=== PATIENT | male | born 1985 ===

== ENCOUNTER 2019-06-28 13:53 | Inpatient (IN) ==
[2019-06-28 16:22] LABS: Apearance,Urine CLOUDY (Clear); Bilirubin,Urine Negative (Negative); Blood, Urine Moderate mg/dL (Negative); Glucose,Urine (UA) 50 mg/dL (Negative); Hyaline Casts,Urine 187 /LPF (0-3); Ketones,Urine 5 mg/dL (Negative); Mucus,Urine Many /LPF (Occasional); Nitrite,Urine Negative (Negative); Protein,Urine 100 MG/DL; RBC,Urine 23 /HPF (0-4); Squamous Epithelial Cell,Urine Occasional /HPF (0-10); Urine Color Amber (Yellow); Urine Specific Gravity 1.018 (1.001-1.035); Urine Urobilinogen < 2.0 EU/DL (0.2-1.0); WBC,Urine 45 /HPF (0-6)
[2019-06-28] MEDS ORDERED: INFLUENZA VIRUS VACCINE 0.5 ML SYRINGE IM ONE (16:50)
[2019-06-28] MEDS ORDERED: DEXTROSE 10% 250 ML BAG IV PRN (16:57)
[2019-06-28] MEDS ORDERED: ALBUTEROL 2.5 MG/3 ML NEB RESP TX PRN (16:57)
[2019-06-28] MEDS ORDERED: ACETAMINOPHEN 325 MG TABLET PO PRN (16:57)
[2019-06-28] MEDS ORDERED: GLUCAGON 1 MG VIAL IM PRN (16:57)
[2019-06-28] MEDS ORDERED: ONDANSETRON 4 MG/2 ML VIAL IV PRN (16:57)
[2019-06-28 17:01] LABS: Basophils % 0.2 % (0.0-0.8); Eosinophils # 0.1 10*3/uL (0.0-0.87); Eosinophils % 0.9 % (0.00-10.9); Hematocrit 29.1 VOL% (42.0-52.0); Hemoglobin 9.3 GM/DL (14.0-18.0); Immature Granulocytes % 0.4 %; Immature Granulocytes Absolute 0.04 #; Lymphocytes # 2.1 10*3/uL (1.4-4.0); Lymphocytes % 22.8 % (21.2-54.2); Mean Corpuscular Volume 95.1 FL (87-102); Mean Platelet Volume 10.7 FL (9.6-12.0); Monocytes % 8.1 % (1.7-12.7); Neutrophils % 67.6 % (38.7-73.9); Red Blood Count 3.06 MC/CUMM (3.8-5.5); Red Cell Distribution Width 15.2 % (9.3-17.3)
[2019-06-28 17:03] LABS: Platelet Count 83 T/CUMM (130-400)
[2019-06-28] MEDS: SODIUM CHLORIDE 0.9% 1,000 ML IV SCH ×2 (17:08→19:15)
[2019-06-28 17:21] LABS: Calcium 7.2 MG/DL (8.5-10.1); Osmolality,Calculated 287.7 MOS/KG (273-304)
[2019-06-28 17:28] LABS: Platelet Estimate Decreased
[2019-06-28 17:53] LABS: Pt O2 Delivery Device Room Air
[2019-06-28 17:54] LABS: ABG HCO3 9.1 MMOL/L (20-26); ABG Oxygen Saturation 98.6 % (95-100); ABG PCO2 22.7 MM HG (35-48)
[2019-06-28 17:56] LABS: ABG PH 7.115 (7.35-7.45)
[2019-06-28] MEDS: LINEZOLID INJ 600 MG in PREMIX 1 EACH IV SCH (18:02)
[2019-06-28 18:15] LABS: Risk Ratio 3.94
[2019-06-28] MEDS: SODIUM BICARB INJ 50 MEQ in SODIUM CHLORIDE 0.45% 1,000 ML IV SCH (19:15)
[2019-06-28] MEDS ORDERED: LEVOFLOXACIN INJ 750 MG in PREMIX 1 EACH IV SCH (20:00)
[2019-06-28] MEDS: INSULIN LISPRO 100 UNIT/ML SUBCUT SCH (20:25)
[2019-06-28] MEDS ORDERED: ENOXAPARIN 30 MG/0.3 ML SYRINGE SUBCUT SCH (21:00)
[2019-06-29 05:10] LABS: Basophils % 0.3 % (0.0-0.8); Eosinophils # 0.1 10*3/uL (0.0-0.87); Eosinophils % 1.6 % (0.00-10.9); Hematocrit 25.3 VOL% (42.0-52.0); Hemoglobin 8.1 GM/DL (14.0-18.0); Immature Granulocytes % 0.4 %; Immature Granulocytes Absolute 0.03 #; Lymphocytes # 1.5 10*3/uL (1.4-4.0); Lymphocytes % 21.5 % (21.2-54.2); Mean Corpuscular Volume 94.4 FL (87-102); Mean Platelet Volume 10.7 FL (9.6-12.0); Neutrophils % 66.2 % (38.7-73.9); Red Blood Count 2.68 MC/CUMM (3.8-5.5); Red Cell Distribution Width 15.2 % (9.3-17.3); White Blood Count 6.9 T/CUMM (4-12)
[2019-06-29 05:17] LABS: Platelet Count 66 T/CUMM (130-400)
[2019-06-29 05:31] LABS: Hypochromasia 1+; Ovalocytes Slight; Platelet Estimate Decreased
[2019-06-29] MEDS: SODIUM BICARB INJ 50 MEQ in SODIUM CHLORIDE 0.45% 1,000 ML IV SCH ×3 (05:37→17:59)
[2019-06-29 05:39] LABS: Albumin 2.3 G/DL (3.4-5.0); Bilirubin,Total 1.2 MG/DL (0.2-1.0); Calcium 6.5 MG/DL (8.5-10.1); Osmolality,Calculated 289.8 MOS/KG (273-304); Total Protein 6.1 G/DL (6.4-8.3)
[2019-06-29] MEDS: LINEZOLID INJ 600 MG in PREMIX 1 EACH IV SCH ×2 (06:13→18:58)
[2019-06-29] MEDS: INSULIN LISPRO 100 UNIT/ML SUBCUT SCH ×4 (08:33→21:15)
[2019-06-29] MEDS: SODIUM HYPOCHLORITE 0.25% IRRIG 473 ML BOTTLE TOP SCH (09:45)
[2019-06-29] MEDS: SODIUM CHLORIDE 23.4% CONC INJ 38.5 MEQ, SODIUM BICARB INJ 100 MEQ in STERILE WATER INJ... IV SCH (21:11)
[2019-06-29] MEDS: OMEGA 3 ACID ETHYL ESTERS 1 GM CAPSULE PO SCH (21:15)
[2019-06-29] MEDS: FERROUS SULFATE 325 MG TABLET PO SCH (21:15)
[2019-06-29] MEDS: GABAPENTIN 300 MG CAPSULE PO SCH (21:15)
[2019-06-30 05:13] LABS: Eosinophils # 0.1 10*3/uL (0.0-0.87); Eosinophils % 1.7 % (0.00-10.9); Hematocrit 24.3 VOL% (42.0-52.0); Hemoglobin 7.9 GM/DL (14.0-18.0); Immature Granulocytes % 0.6 %; Immature Granulocytes Absolute 0.03 #; Lymphocytes # 1.6 10*3/uL (1.4-4.0); Lymphocytes % 29.9 % (21.2-54.2); Mean Corpuscular HGB Conc 32.5 GM/DL (32-36); Mean Corpuscular Volume 93.5 FL (87-102); Mean Platelet Volume 10.9 FL (9.6-12.0); Monocytes % 11.8 % (1.7-12.7); Platelet Count 74 T/CUMM (130-400); Red Cell Distribution Width 15.1 % (9.3-17.3); White Blood Count 5.3 T/CUMM (4-12)
[2019-06-30 05:40] LABS: Calcium 6.5 MG/DL (8.5-10.1); Osmolality,Calculated 294.4 MOS/KG (273-304)
[2019-06-30 05:44] LABS: Hypochromasia Slight; Microcytosis 1+; Platelet Estimate Decreased
[2019-06-30] MEDS: LINEZOLID INJ 600 MG in PREMIX 1 EACH IV SCH ×2 (05:47→17:11)
[2019-06-30] MEDS: INSULIN LISPRO 100 UNIT/ML SUBCUT SCH ×4 (08:11→21:17)
[2019-06-30] MEDS: FERROUS SULFATE 325 MG TABLET PO SCH ×2 (08:12→20:54)
[2019-06-30] MEDS: CHOLECALCIFEROL 5,000 UNIT TABLET PO SCH (08:12)
[2019-06-30] MEDS: ASPIRIN EC 81 MG TABLET PO SCH (08:12)
[2019-06-30] MEDS: SODIUM HYPOCHLORITE 0.25% IRRIG 473 ML BOTTLE TOP SCH (08:13)
[2019-06-30] MEDS: SODIUM CHLORIDE 23.4% CONC INJ 38.5 MEQ, SODIUM BICARB INJ 100 MEQ in STERILE WATER INJ... IV SCH ×2 (09:29→20:53)
[2019-06-30] MEDS ORDERED: LEVOFLOXACIN INJ 500 MG in PREMIX 1 EACH IV SCH (20:00)
[2019-06-30] MEDS: OMEGA 3 ACID ETHYL ESTERS 1 GM CAPSULE PO SCH (20:54)
[2019-06-30] MEDS: GABAPENTIN 300 MG CAPSULE PO SCH (20:54)
[2019-07-01] MEDS: LINEZOLID INJ 600 MG in PREMIX 1 EACH IV SCH ×2 (05:08→17:12)
[2019-07-01 05:18] LABS: Calcium 6.5 MG/DL (8.5-10.1); Osmolality,Calculated 304.8 MOS/KG (273-304)
[2019-07-01] MEDS: SODIUM HYPOCHLORITE 0.25% IRRIG 473 ML BOTTLE TOP SCH (08:04)
[2019-07-01] MEDS: ASPIRIN EC 81 MG TABLET PO SCH (08:04)
[2019-07-01] MEDS: CHOLECALCIFEROL 5,000 UNIT TABLET PO SCH (08:04)
[2019-07-01] MEDS: FERROUS SULFATE 325 MG TABLET PO SCH ×2 (08:04→20:59)
[2019-07-01] MEDS: INSULIN LISPRO 100 UNIT/ML SUBCUT SCH ×4 (08:07→21:00)
[2019-07-01] MEDS: SODIUM BICARB INJ 100 MEQ in STERILE WATER INJ 1,000 ML IV SCH ×2 (09:33→23:56)
[2019-07-01] MEDS: OMEGA 3 ACID ETHYL ESTERS 1 GM CAPSULE PO SCH (20:59)
[2019-07-01] MEDS: GABAPENTIN 300 MG CAPSULE PO SCH (21:00)
[2019-07-01] MEDS ORDERED: CIPROFLOXACIN 500 MG TABLET PO SCH (21:00)
[2019-07-02] MEDS: SODIUM CHLORIDE 23.4% CONC INJ 38.5 MEQ, SODIUM BICARB INJ 100 MEQ in STERILE WATER INJ... IV SCH (01:19)
[2019-07-02 05:08] LABS: Basophils % 0.3 % (0.0-0.8); Eosinophils # 0.1 10*3/uL (0.0-0.87); Eosinophils % 2.4 % (0.00-10.9); Hematocrit 21.1 VOL% (42.0-52.0); Hemoglobin 7.1 GM/DL (14.0-18.0); Immature Granulocytes % 0.3 %; Immature Granulocytes Absolute 0.01 #; Lymphocytes # 1.2 10*3/uL (1.4-4.0); Lymphocytes % 40.2 % (21.2-54.2); Mean Corpuscular HGB Conc 33.6 GM/DL (32-36); Mean Corpuscular Volume 92.1 FL (87-102); Mean Platelet Volume 10.4 FL (9.6-12.0); Monocytes % 10.1 % (1.7-12.7); Neutrophils % 46.7 % (38.7-73.9); Platelet Count 81 T/CUMM (130-400); Red Blood Count 2.29 MC/CUMM (3.8-5.5); Red Cell Distribution Width 15.3 % (9.3-17.3)
[2019-07-02 05:37] LABS: Calcium 6.4 MG/DL (8.5-10.1); Osmolality,Calculated 304.4 MOS/KG (273-304)
[2019-07-02 05:39] LABS: Eosinophils 3 % (0-10); Lymphocytes 44 % (20-55); Segmented Neutrophils 43 % (50-85); Total Cells Counted 100
[2019-07-02 05:41] LABS: Anisocytosis 1+; Platelet Estimate Decreased
[2019-07-02] MEDS: FERROUS SULFATE 325 MG TABLET PO SCH ×2 (08:29→20:48)
[2019-07-02] MEDS: SULFAMETHOX/TRIMETHOPRIM 800-160 MG TABLET PO SCH (08:29)
[2019-07-02] MEDS: ASPIRIN EC 81 MG TABLET PO SCH (08:30)
[2019-07-02] MEDS: CHOLECALCIFEROL 5,000 UNIT TABLET PO SCH (08:30)
[2019-07-02] MEDS: SODIUM HYPOCHLORITE 0.25% IRRIG 473 ML BOTTLE TOP SCH (08:30)
[2019-07-02] MEDS: INSULIN LISPRO 100 UNIT/ML SUBCUT SCH ×4 (09:03→20:49)
[2019-07-02] MEDS ORDERED: MAGNESIUM SULF RIDER 2 GM in PREMIX 1 EACH IV ONE (09:06)
[2019-07-02] MEDS: SODIUM BICARB INJ 50 MEQ in STERILE WATER INJ 1,000 ML IV SCH (14:58)
[2019-07-02] MEDS: GABAPENTIN 300 MG CAPSULE PO SCH (20:48)
[2019-07-02] MEDS: OMEGA 3 ACID ETHYL ESTERS 1 GM CAPSULE PO SCH (20:49)
[2019-07-03 05:05] LABS: Calcium 6.7 MG/DL (8.5-10.1); Osmolality,Calculated 299.6 MOS/KG (273-304)
[2019-07-03] MEDS: SODIUM BICARB INJ 50 MEQ in STERILE WATER INJ 1,000 ML IV SCH (07:30)
[2019-07-03] MEDS: INSULIN LISPRO 100 UNIT/ML SUBCUT SCH ×2 (07:40→13:46)
[2019-07-03] MEDS: ASPIRIN EC 81 MG TABLET PO SCH (08:32)
[2019-07-03] MEDS: CHOLECALCIFEROL 5,000 UNIT TABLET PO SCH (08:33)
[2019-07-03] MEDS: FERROUS SULFATE 325 MG TABLET PO SCH (08:33)
[2019-07-03] MEDS: SULFAMETHOX/TRIMETHOPRIM 800-160 MG TABLET PO SCH (08:33)
[2019-07-03] MEDS: SODIUM HYPOCHLORITE 0.25% IRRIG 473 ML BOTTLE TOP SCH (09:55)
[2019-07-03 13:58] VITALS: BP 164/89
[2019-07-03] MEDS ORDERED: SODIUM BICARBONATE 650 MG TABLET PO SCH (21:00)
== END 2019-07-03 15:15 | disposition home or self-care (01) | DRG 683 ==
LOC: N.ICU 15:38 → SUATTDRO 15:38 → N.3E 06-29 15:32
PROVIDERS: ADMIT Internal Medicine; ATTEND Internal Medicine

== ENCOUNTER 2021-11-04 10:25 | Observation (INO) ==
[~2021-11-04 10:25] MED LIST: ASPIRIN 325 MG TABLET PO ONE; DIAZEPAM 5 MG TABLET PO ONE; MAGNESIUM SULF RIDER 2 GM/50 ML PREMIX IV PRN; POTASSIUM CHLORIDE RIDER 10 MEQ/100 ML PREMIX IV PRN; SODIUM CHLORIDE 0.9% 1,000 ML IV SCH; diphenhydrAMINE CAP 50 MG CAPSULE PO ONE
[2021-11-04] MEDS ORDERED: ASPIRIN 325 MG TABLET ONE (11:18)
[2021-11-04] MEDS ORDERED: DIAZEPAM 5 MG TABLET ONE (11:19)
[2021-11-04] MEDS ORDERED: diphenhydrAMINE CAP 50 MG CAPSULE ONE (11:19)
[2021-11-04 11:51] LABS: Basophils % 0.2 % (0.0-0.8); Eosinophils # 0.3 10*3/uL (0.0-0.87); Eosinophils % 1.7 % (0.00-10.9); Hematocrit 22.9 VOL% (42.0-52.0); Hemoglobin 7.8 GM/DL (14.0-18.0); Immature Granulocytes % 1.6 %; Immature Granulocytes Absolute 0.31 #; Lymphocytes # 0.8 10*3/uL (1.4-4.0); Lymphocytes % 4.4 % (21.2-54.2); Mean Corpuscular HGB Conc 34.1 GM/DL (32-36); Mean Corpuscular Volume 103.6 FL (87-102); Mean Platelet Volume 11.3 FL (9.6-12.0); Monocytes % 4.3 % (1.7-12.7); Neutrophils % 87.8 % (38.7-73.9); Platelet Count 62 T/CUMM (130-400); Red Blood Count 2.21 MC/CUMM (3.8-5.5); Red Cell Distribution Width 14.6 % (9.3-17.3)
[2021-11-04 11:55] LABS: Calcium 7.1 MG/DL (8.5-10.1); Osmolality,Calculated 288.5 MOS/KG (273-304)
[2021-11-04] MEDS ORDERED: MAGNESIUM SULF RIDER 2 GM/50 ML PREMIX IV ONE ×2 (13:07→16:44)
[2021-11-04 13:20] LABS: Band Neutrophils 1 % (0-10); Lymphocytes 4 % (20-55); Segmented Neutrophils 93 % (50-85); Total Cells Counted 100
[2021-11-04 13:21] LABS: Hypochromia 1+; Microcytosis Slight; Platelet Estimate Decreased
[2021-11-04] MEDS ORDERED: EPOETIN ALFA-EPBX 10,000 UNIT/ML VIAL IV PRN (14:14)
[2021-11-04] MEDS ORDERED: MIDAZOLAM 2 MG/2 ML VIAL ONE (15:55)
[2021-11-04] MEDS ORDERED: HYDROmorphone 1 MG/1 ML SYRINGE ONE (15:55)
[2021-11-04] MEDS ORDERED: ACETAMINOPHEN 325 MG TABLET PO PRN (16:08)
[2021-11-04] MEDS ORDERED: LOPERAMIDE 2 MG CAPSULE PO PRN (16:08)
[2021-11-04] MEDS ORDERED: diphenhydrAMINE CAP 25 MG CAPSULE PO PRN (16:12)
[2021-11-04] MEDS ORDERED: GLUCAGON 1 MG VIAL IM PRN (16:22)
[2021-11-04] MEDS ORDERED: DEXTROSE 10% 250 ML BAG IV PRN ×2 (16:26→16:46)
[2021-11-04] MEDS ORDERED: NITROGLYCERIN SL 0.4 MG TABLET SL PRN (16:28)
[2021-11-04] MEDS ORDERED: ONDANSETRON 4 MG/2 ML VIAL IV PRN (16:28)
[2021-11-04] MEDS ORDERED: ENOXAPARIN 30 MG/0.3 ML SYRINGE SUBCUT SCH (16:30)
[2021-11-04] MEDS ORDERED: HYDROmorphone 1 MG/1 ML SYRINGE IV PRN (16:31)
[2021-11-04] MEDS: INSULIN REGULAR 100 UNIT/ML SUBCUT SCH ×2 (17:24→22:10)
[2021-11-04] MEDS ORDERED: ATORVASTATIN 40 MG TABLET PO SCH (21:00)
[2021-11-04] MEDS ORDERED: rOPINIRole 0.25 MG TABLET PO SCH (21:00)
[2021-11-04] MEDS: CLINDAMYCIN 300 MG CAPSULE PO SCH (22:08)
[2021-11-04] MEDS: GABAPENTIN 300 MG CAPSULE PO SCH (22:08)
[2021-11-04] MEDS: INSULIN LISPRO 100 UNIT/ML SUBCUT SCH (22:09)
[2021-11-05 05:43] LABS: Osmolality,Calculated 282.2 MOS/KG (273-304); Potassium 5.7 MMOL/L (3.5-5.1); Risk Ratio 6.33; VLDL Cholesterol 29.4 MG/DL
[2021-11-05 05:49] LABS: Basophils % 0.2 % (0.0-0.8); Eosinophils # 0.5 10*3/uL (0.0-0.87); Eosinophils % 2.4 % (0.00-10.9); Hematocrit 23.1 VOL% (42.0-52.0); Hemoglobin 7.6 GM/DL (14.0-18.0); Immature Granulocytes % 1.2 %; Immature Granulocytes Absolute 0.23 #; Lymphocytes # 1.3 10*3/uL (1.4-4.0); Lymphocytes % 6.7 % (21.2-54.2); Mean Corpuscular HGB Conc 32.9 GM/DL (32-36); Mean Corpuscular Volume 105.5 FL (87-102); Mean Platelet Volume 11.6 FL (9.6-12.0); Monocytes % 5.3 % (1.7-12.7); Neutrophils % 84.2 % (38.7-73.9); Platelet Count 53 T/CUMM (130-400); Red Blood Count 2.19 MC/CUMM (3.8-5.5); Red Cell Distribution Width 14.7 % (9.3-17.3); White Blood Count 18.8 T/CUMM (4-12)
[2021-11-05 05:55] LABS: Band Neutrophils 1 % (0-10); Eosinophils 4 % (0-10); Lymphocytes 5 % (20-55); Segmented Neutrophils 87 % (50-85); Total Cells Counted 100
[2021-11-05 05:57] LABS: Hypochromia 1+; Microcytosis 1+
[2021-11-05 05:58] LABS: Platelet Estimate Decreased; Polychromasia Slight
[2021-11-05] MEDS: INSULIN REGULAR 100 UNIT/ML SUBCUT SCH ×2 (08:25→12:33)
[2021-11-05] MEDS ORDERED: ASPIRIN EC 81 MG TABLET PO SCH (09:00)
[2021-11-05] MEDS ORDERED: INSULIN GLARGINE 100 UNIT/ML SUBCUT SCH (09:00)
[2021-11-05 09:01] VITALS: BP 91/54
[2021-11-05] MEDS ORDERED: HEPARIN 10,000 UNIT/10 ML VIAL IV SCH (09:30)
[2021-11-05] MEDS: INSULIN LISPRO 100 UNIT/ML SUBCUT SCH (09:34)
[2021-11-05] MEDS: CLINDAMYCIN 300 MG CAPSULE PO SCH (09:34)
[2021-11-05] MEDS: GABAPENTIN 300 MG CAPSULE PO SCH (09:35)
[2021-11-05] MEDS ORDERED: COLLAGENASE OINT 30 GM TUBE TOP SCH (14:00)
== END 2021-11-05 18:34 | disposition home or self-care (01) ==
LOC: N.CL 10:25 → INTOOBSV 16:39 → N.TELES 16:39
PROVIDERS: ADMIT Internal Medicine Cardiovascular Disease; ATTEND Internal Medicine Cardiovascular Disease

== ENCOUNTER 2022-03-02 21:11 | Inpatient (IN) ==
[2022-03-02] MEDS ORDERED: VANCOMYCIN INJ 1,000 MG in SODIUM CHLORIDE 0.9% 250 ML IV STA (22:11)
[2022-03-02] MEDS ORDERED: GLUCAGON 1 MG VIAL IM PRN ×2 (22:12→22:17)
[2022-03-02] MEDS ORDERED: DEXTROSE 50% 25 GM/50 ML VIAL IV PRN (22:12)
[2022-03-02] MEDS ORDERED: ONDANSETRON 4 MG/2 ML VIAL IV PRN (22:17)
[2022-03-02] MEDS ORDERED: DEXTROSE 10% 250 ML BAG IV PRN (22:31)
[2022-03-02 22:46] LABS: Basophils % 0.1 % (0.0-0.8); Eosinophils # 0.1 10*3/uL (0.0-0.87); Eosinophils % 0.7 % (0.00-10.9); Hematocrit 29.2 VOL% (42.0-52.0); Hemoglobin 9.7 GM/DL (14.0-18.0); Immature Granulocytes % 4.7 %; Immature Granulocytes Absolute 0.63 #; Lymphocytes # 0.9 10*3/uL (1.4-4.0); Lymphocytes % 6.4 % (21.2-54.2); Mean Corpuscular HGB Conc 33.2 GM/DL (32-36); Mean Platelet Volume 10.7 FL (9.6-12.0); Monocytes # 0.7 10*3/uL (0.11-0.8); Monocytes % 4.9 % (1.7-12.7); NRBC # 0.03 10*3/uL; Neutrophils % 83.2 % (38.7-73.9); Platelet Count 86 T/CUMM (130-400); Red Blood Count 2.98 MC/CUMM (3.8-5.5); Red Cell Distribution Width 16.1 % (9.3-17.3); White Blood Count 13.5 T/CUMM (4-12)
[2022-03-02 23:15] LABS: Albumin 2.1 G/DL (3.4-5.0); Bilirubin,Total 0.7 MG/DL (0.20-1.00); Calcium 7.2 MG/DL (8.5-10.1); Osmolality,Calculated 288.2 MOS/KG (273-304); Potassium 3.9 MMOL/L (3.5-5.1); Total Protein 7.5 G/DL (6.4-8.2)
[2022-03-02 23:32] LABS: Lymphocytes 7 % (20-55); Nucleated Red Blood Cells 1 (0-5); Total Cells Counted 100
[2022-03-02 23:33] LABS: Platelet Estimate Decreased
[2022-03-03] MEDS ORDERED: VANCOMYCIN INJ 1,000 MG in SODIUM CHLORIDE 0.9% 250 ML IV ONE
[2022-03-03 07:10] LABS: Basophils % 0.2 % (0.0-0.8); Eosinophils # 0.1 10*3/uL (0.0-0.87); Eosinophils % 0.8 % (0.00-10.9); Hematocrit 28.9 VOL% (42.0-52.0); Hemoglobin 9.4 GM/DL (14.0-18.0); Immature Granulocytes % 3.2 %; Immature Granulocytes Absolute 0.41 #; Lymphocytes # 1.2 10*3/uL (1.4-4.0); Lymphocytes % 8.9 % (21.2-54.2); Mean Corpuscular HGB Conc 32.5 GM/DL (32-36); Mean Platelet Volume 10.3 FL (9.6-12.0); Monocytes # 0.9 10*3/uL (0.11-0.8); Monocytes % 6.7 % (1.7-12.7); Neutrophils % 80.2 % (38.7-73.9); Platelet Count 76 T/CUMM (130-400); Red Blood Count 2.89 MC/CUMM (3.8-5.5); Red Cell Distribution Width 16.4 % (9.3-17.3)
[2022-03-03 07:27] LABS: Platelet Estimate Decreased
[2022-03-03 07:33] LABS: Albumin 1.9 G/DL (3.4-5.0); Bilirubin,Total 0.9 MG/DL (0.20-1.00); Calcium 7.3 MG/DL (8.5-10.1); Osmolality,Calculated 289.1 MOS/KG (273-304); Potassium 4.1 MMOL/L (3.5-5.1); Total Protein 6.9 G/DL (6.4-8.2)
[2022-03-03] MEDS: INSULIN REGULAR 100 UNIT/ML SUBCUT SCH ×5 (08:13→21:25)
[2022-03-03] MEDS ORDERED: HYDROmorphone 1 MG/1 ML SYRINGE IV PRN (09:20)
[2022-03-03] MEDS ORDERED: BISACODYL 5 MG TABLET PO PRN (09:20)
[2022-03-03] MEDS ORDERED: ACETAMINOPHEN 325 MG TABLET PO PRN (09:20)
[2022-03-03] MEDS ORDERED: SODIUM CHLORIDE 0.9% 250 ML IV SCH (11:30)
[2022-03-03] MEDS ORDERED: BUPIVACAINE MPF 0.25% 10 ML VIAL ONE (11:34)
[2022-03-03] MEDS ORDERED: LIDOCAINE 1%/EPI INJ 20 ML VIAL ONE (11:34)
[2022-03-03] MEDS ORDERED: propofoL 200 MG/20 ML VIAL IV ONE (12:12)
[2022-03-03] MEDS ORDERED: ONDANSETRON 4 MG/2 ML VIAL ONE (12:12)
[2022-03-03] MEDS ORDERED: SEVOFLURANE 1 UNIT/15 MINUTE INH ONE ×2 (12:12→12:25)
[2022-03-03] MEDS ORDERED: ETOMIDATE 40 MG/20 ML VIAL IV ONE (12:12)
[2022-03-03] MEDS ORDERED: LIDOCAINE 2% 5 ML VIAL ONE (12:12)
[2022-03-03] MEDS ORDERED: ceFAZolin 1,000 MG VIAL ONE (12:21)
[2022-03-03] MEDS ORDERED: PHENYLEPHRINE 1 MG/10 ML SYRINGE IV ONE (12:27)
[2022-03-03] MEDS: PIPERACILLIN/TAZOBACTAM 3,375 MG in SODIUM CHLORIDE 0.9% 100 ML IV SCH (13:50)
[2022-03-03] MEDS ORDERED: ONDANSETRON 4 MG/2 ML VIAL IV PRN (14:23)
[2022-03-03] MEDS: HYDROmorphone 1 MG/1 ML SYRINGE IV PRN ×2 (14:29→14:39)
[2022-03-03] MEDS ORDERED: HEPARIN 5,000 UNIT/1 ML VIAL SUBCUT ONE (16:55)
[2022-03-03] MEDS ORDERED: VANCOMYCIN INJ 750 MG in SODIUM CHLORIDE 0.9% 250 ML IV PRN (17:00)
[2022-03-03] MEDS: GABAPENTIN 300 MG CAPSULE PO SCH ×2 (17:20→21:24)
[2022-03-03] MEDS: PANTOPRAZOLE 40 MG TABLET PO SCH (19:51)
[2022-03-03] MEDS: rOPINIRole 0.25 MG TABLET PO SCH (21:24)
[2022-03-04] MEDS: PIPERACILLIN/TAZOBACTAM 3,375 MG in SODIUM CHLORIDE 0.9% 100 ML IV SCH ×2 (04:30→18:20)
[2022-03-04 05:07] LABS: Basophils % 0.2 % (0.0-0.8); Eosinophils # 0.2 10*3/uL (0.0-0.87); Eosinophils % 1.7 % (0.00-10.9); Hematocrit 25.8 VOL% (42.0-52.0); Hemoglobin 8.6 GM/DL (14.0-18.0); Immature Granulocytes % 2.9 %; Immature Granulocytes Absolute 0.34 #; Lymphocytes # 1.3 10*3/uL (1.4-4.0); Lymphocytes % 10.8 % (21.2-54.2); Mean Corpuscular HGB Conc 33.3 GM/DL (32-36); Mean Corpuscular Volume 97.7 FL (87-102); Mean Platelet Volume 10.3 FL (9.6-12.0); Monocytes # 0.8 10*3/uL (0.11-0.8); Monocytes % 6.9 % (1.7-12.7); Neutrophils % 77.5 % (38.7-73.9); Platelet Count 68 T/CUMM (130-400); Red Blood Count 2.64 MC/CUMM (3.8-5.5); Red Cell Distribution Width 16.2 % (9.3-17.3); White Blood Count 11.5 T/CUMM (4-12)
[2022-03-04 05:23] LABS: Calcium 6.9 MG/DL (8.5-10.1); Osmolality,Calculated 290.1 MOS/KG (273-304); Potassium 4.2 MMOL/L (3.5-5.1)
[2022-03-04 05:27] LABS: Platelet Estimate Decreased
[2022-03-04] MEDS: INSULIN GLARGINE 100 UNIT/ML SUBCUT SCH (09:26)
[2022-03-04] MEDS: INSULIN REGULAR 100 UNIT/ML SUBCUT SCH ×7 (09:26→21:53)
[2022-03-04] MEDS: GABAPENTIN 300 MG CAPSULE PO SCH ×3 (09:27→21:52)
[2022-03-04] MEDS: PANTOPRAZOLE 40 MG TABLET PO SCH (09:27)
[2022-03-04 12:46] LABS: Hepatitis B Surface Ag Quant 0.22 Index; Hepatitis B Surface Ag Result Non-Reactive (NonReactive)
[2022-03-04] MEDS ORDERED: HEPARIN 10,000 UNIT/10 ML VIAL IV SCH (13:15)
[2022-03-04] MEDS ORDERED: VANCOMYCIN INJ 750 MG in SODIUM CHLORIDE 0.9% 250 ML IV ONE (17:00)
[2022-03-04] MEDS: rOPINIRole 0.25 MG TABLET PO SCH (21:53)
[2022-03-04] MEDS: RIVAROXABAN 2.5 MG TABLET PO SCH (21:53)
[2022-03-05] MEDS: PIPERACILLIN/TAZOBACTAM 3,375 MG in SODIUM CHLORIDE 0.9% 100 ML IV SCH ×3 (05:09→21:05)
[2022-03-05 06:13] LABS: Basophils % 0.2 % (0.0-0.8); Eosinophils # 0.2 10*3/uL (0.0-0.87); Eosinophils % 1.4 % (0.00-10.9); Hematocrit 27.1 VOL% (42.0-52.0); Hemoglobin 9.1 GM/DL (14.0-18.0); Immature Granulocytes % 1.9 %; Lymphocytes % 9.2 % (21.2-54.2); Mean Corpuscular HGB Conc 33.6 GM/DL (32-36); Mean Corpuscular Volume 98.9 FL (87-102); Mean Platelet Volume 10.3 FL (9.6-12.0); Monocytes # 0.9 10*3/uL (0.11-0.8); Monocytes % 8.6 % (1.7-12.7); Neutrophils % 78.7 % (38.7-73.9); Platelet Count 64 T/CUMM (130-400); Red Blood Count 2.74 MC/CUMM (3.8-5.5); Red Cell Distribution Width 16.6 % (9.3-17.3); White Blood Count 10.5 T/CUMM (4-12)
[2022-03-05 06:29] LABS: Calcium 7.1 MG/DL (8.5-10.1); Osmolality,Calculated 283.4 MOS/KG (273-304); Potassium 4.1 MMOL/L (3.5-5.1)
[2022-03-05 06:33] LABS: Albumin 1.7 G/DL (3.4-5.0); Bilirubin,Direct 0.42 MG/DL (0.0-0.20); Bilirubin,Indirect 0.4 MG/DL (0.0-1.0); Bilirubin,Total 0.8 MG/DL (0.20-1.00)
[2022-03-05 06:59] LABS: Platelet Estimate Decreased
[2022-03-05 07:11] LABS: Hepatitis B Surface Ag Quant < 0.10 Index; Hepatitis B Surface Ag Result Non-Reactive (NonReactive); Hepatitis C Virus Ab Quant 0.18 Index; Hepatitis C Virus Ab Result Non-Reactive (NonReactive)
[2022-03-05] MEDS: PANTOPRAZOLE 40 MG TABLET PO SCH (09:50)
[2022-03-05] MEDS: GABAPENTIN 300 MG CAPSULE PO SCH ×3 (09:50→21:01)
[2022-03-05] MEDS: RIVAROXABAN 2.5 MG TABLET PO SCH ×2 (09:50→21:01)
[2022-03-05] MEDS: INSULIN REGULAR 100 UNIT/ML SUBCUT SCH ×7 (09:51→21:02)
[2022-03-05] MEDS: INSULIN GLARGINE 100 UNIT/ML SUBCUT SCH (09:51)
[2022-03-05] MEDS ORDERED: SULFAMETHOX/TRIMETHOPRIM 800-160 MG TABLET PO SCH (13:00)
[2022-03-05] MEDS ORDERED: SULFAMETHOX/TRIMETHOPRIM 800-160 MG TABLET PO ONE (13:30)
[2022-03-05] MEDS: rOPINIRole 0.25 MG TABLET PO SCH (21:01)
[2022-03-06] MEDS: PIPERACILLIN/TAZOBACTAM 3,375 MG in SODIUM CHLORIDE 0.9% 100 ML IV SCH (06:12)
[2022-03-06] MEDS: INSULIN REGULAR 100 UNIT/ML SUBCUT SCH ×6 (08:45→16:13)
[2022-03-06] MEDS: PANTOPRAZOLE 40 MG TABLET PO SCH (08:45)
[2022-03-06] MEDS: GABAPENTIN 300 MG CAPSULE PO SCH ×2 (08:45→16:12)
[2022-03-06] MEDS: RIVAROXABAN 2.5 MG TABLET PO SCH (08:45)
[2022-03-06] MEDS: INSULIN GLARGINE 100 UNIT/ML SUBCUT SCH (08:46)
[2022-03-06] MEDS ORDERED: VANCOMYCIN INJ 750 MG in SODIUM CHLORIDE 0.9% 250 ML IV ONE ×2 (09:00→17:00)
[2022-03-06 16:52] VITALS: BP 116/56
[2022-03-09] MEDS ORDERED: ceFAZolin 2,000 MG/50 ML DUPLEX IV SCH (17:00)
== END 2022-03-06 18:08 | disposition home or self-care (01) | DRG 871 ==
LOC: N.ED 21:11 → SUATTDRO 22:12 → N.EDINP 22:12 → N.5E 03-03 10:55
PROVIDERS: ADMIT Internal Medicine; ATTEND Internal Medicine

== ENCOUNTER 2022-04-28 05:49 | Inpatient (IN) ==
[2022-04-28] MEDS ORDERED: SODIUM CHLORIDE 0.9% 250 ML IV SCH (06:30)
[2022-04-28 06:56] LABS: Basophils % 0.2 % (0.0-0.8); Eosinophils # 0.1 10*3/uL (0.0-0.87); Eosinophils % 2.6 % (0.00-10.9); Hemoglobin 9.3 GM/DL (14.0-18.0); Immature Granulocytes % 0.6 %; Immature Granulocytes Absolute 0.03 #; Lymphocytes % 17.6 % (21.2-54.2); Mean Corpuscular HGB Conc 32.1 GM/DL (32-36); Mean Corpuscular Volume 104.7 FL (87-102); Mean Platelet Volume 10.3 FL (9.6-12.0); Monocytes # 0.5 10*3/uL (0.11-0.8); Monocytes % 9.6 % (1.7-12.7); Neutrophils % 69.4 % (38.7-73.9); Red Blood Count 2.77 MC/CUMM (3.8-5.5); Red Cell Distribution Width 17.2 % (9.3-17.3); White Blood Count 5.4 T/CUMM (4-12)
[2022-04-28 06:58] LABS: Platelet Count 64 T/CUMM (130-400)
[2022-04-28 07:15] LABS: Calcium 7.4 MG/DL (8.5-10.1); Osmolality,Calculated 266.8 MOS/KG (273-304); Potassium 3.6 MMOL/L (3.5-5.1)
[2022-04-28] MEDS ORDERED: FAMOTIDINE 20 MG TABLET PO ONE (08:02)
[2022-04-28] MEDS ORDERED: ETOMIDATE 40 MG/20 ML VIAL IV ONE (09:01)
[2022-04-28] MEDS ORDERED: propofoL 200 MG/20 ML VIAL IV ONE (09:01)
[2022-04-28] MEDS ORDERED: SEVOFLURANE 1 UNIT/15 MINUTE INH ONE ×2 (09:01→10:49)
[2022-04-28] MEDS ORDERED: LIDOCAINE 2% 5 ML VIAL ONE (09:01)
[2022-04-28] MEDS ORDERED: MIDAZOLAM 2 MG/2 ML VIAL ONE (09:01)
[2022-04-28] MEDS ORDERED: fentaNYL 100 MCG/2 ML VIAL ONE (09:02)
[2022-04-28] MEDS ORDERED: KETAMINE 500 MG/10 ML VIAL ONE (09:03)
[2022-04-28] MEDS ORDERED: ROCURONIUM 50 MG/5 ML VIAL IV ONE (09:45)
[2022-04-28] MEDS ORDERED: SODIUM CHLORIDE 0.9% 250 ML IV ONE (10:21)
[2022-04-28] MEDS ORDERED: SUGAMMADEX 200 MG/2 ML VIAL IV ONE (10:46)
[2022-04-28] MEDS ORDERED: DEXTROSE 10% 250 ML BAG IV PRN (10:48)
[2022-04-28] MEDS ORDERED: ONDANSETRON 4 MG/2 ML VIAL IV PRN ×2 (10:48→11:05)
[2022-04-28] MEDS ORDERED: ACETAMINOPHEN 325 MG TABLET PO PRN (10:48)
[2022-04-28] MEDS ORDERED: GLUCAGON 1 MG VIAL IM PRN (10:48)
[2022-04-28] MEDS: HYDROmorphone 1 MG/1 ML SYRINGE IV PRN ×5 (11:11→21:20)
[2022-04-28] MEDS ORDERED: MEPERIDINE 50 MG/1 ML VIAL ONE (11:23)
[2022-04-28] MEDS: MEPERIDINE 25 MG/1 ML VIAL IV PRN ×2 (11:38→11:53)
[2022-04-28] MEDS: INSULIN REGULAR 100 UNIT/ML SUBCUT SCH ×3 (12:48→22:29)
[2022-04-28] MEDS: PIPERACILLIN/TAZOBACTAM 3,375 MG in SODIUM CHLORIDE 0.9% 100 ML IV SCH (13:00)
[2022-04-28] MEDS: GABAPENTIN 300 MG CAPSULE PO SCH (21:20)
[2022-04-29] MEDS: PIPERACILLIN/TAZOBACTAM 3,375 MG in SODIUM CHLORIDE 0.9% 100 ML IV SCH ×2 (01:26→13:52)
[2022-04-29 03:53] LABS: Basophils % 0.3 % (0.0-0.8); Eosinophils # 0.2 10*3/uL (0.0-0.87); Eosinophils % 2.8 % (0.00-10.9); Hematocrit 28.7 VOL% (42.0-52.0); Hemoglobin 9.1 GM/DL (14.0-18.0); Immature Granulocytes % 0.5 %; Immature Granulocytes Absolute 0.03 #; Lymphocytes # 0.9 10*3/uL (1.4-4.0); Mean Corpuscular HGB Conc 31.7 GM/DL (32-36); Mean Corpuscular Volume 106.3 FL (87-102); Monocytes # 0.7 10*3/uL (0.11-0.8); Monocytes % 10.7 % (1.7-12.7); Neutrophils % 71.7 % (38.7-73.9); Platelet Count 61 T/CUMM (130-400); Red Cell Distribution Width 17.1 % (9.3-17.3); White Blood Count 6.1 T/CUMM (4-12)
[2022-04-29] MEDS: HYDROmorphone 1 MG/1 ML SYRINGE IV PRN ×3 (03:55→22:54)
[2022-04-29 04:11] LABS: Hypochromia Slight; Platelet Estimate Decreased
[2022-04-29 04:12] LABS: Calcium 7.1 MG/DL (8.5-10.1); Osmolality,Calculated 269.7 MOS/KG (273-304); Potassium 3.8 MMOL/L (3.5-5.1)
[2022-04-29] MEDS: GABAPENTIN 300 MG CAPSULE PO SCH ×3 (09:00→20:47)
[2022-04-29] MEDS: PANTOPRAZOLE 40 MG TABLET PO SCH (09:00)
[2022-04-29] MEDS: INSULIN REGULAR 100 UNIT/ML SUBCUT SCH ×4 (09:01→20:48)
[2022-04-29] MEDS: ENOXAPARIN 30 MG/0.3 ML SYRINGE SUBCUT SCH (09:10)
[2022-04-29] MEDS ORDERED: HEPARIN 10,000 UNIT/10 ML VIAL IV SCH (10:15)
[2022-04-29 10:25] LABS: Hepatitis B Core IgM Quant 0.21 Index; Hepatitis B Surface Ag Quant < 0.10 Index; Hepatitis B Surface Ag Result Non-Reactive (NonReactive); Hepatitis C Virus Ab Result Non-Reactive (NonReactive)
[2022-04-30] MEDS: PIPERACILLIN/TAZOBACTAM 3,375 MG in SODIUM CHLORIDE 0.9% 100 ML IV SCH ×2 (01:12→22:45)
[2022-04-30] MEDS: HYDROmorphone 1 MG/1 ML SYRINGE IV PRN ×3 (05:12→20:53)
[2022-04-30] MEDS: GABAPENTIN 300 MG CAPSULE PO SCH ×3 (09:36→20:53)
[2022-04-30] MEDS: PANTOPRAZOLE 40 MG TABLET PO SCH (09:36)
[2022-04-30] MEDS: INSULIN REGULAR 100 UNIT/ML SUBCUT SCH ×4 (09:36→20:59)
[2022-04-30] MEDS: ENOXAPARIN 30 MG/0.3 ML SYRINGE SUBCUT SCH (09:36)
[2022-04-30] MEDS ORDERED: TUBERCULIN SKIN TEST 0.1 ML SYRINGE INTRADERM ONE (16:25)
[2022-05-01] MEDS: INSULIN REGULAR 100 UNIT/ML SUBCUT SCH ×2 (08:00→12:00)
[2022-05-01 08:57] LABS: Basophils % 0.5 % (0.0-0.8); Eosinophils # 0.1 10*3/uL (0.0-0.87); Eosinophils % 2.9 % (0.00-10.9); Hematocrit 23.7 VOL% (42.0-52.0); Immature Granulocytes % 0.5 %; Immature Granulocytes Absolute 0.02 #; Lymphocytes # 0.9 10*3/uL (1.4-4.0); Lymphocytes % 20.6 % (21.2-54.2); Mean Corpuscular HGB Conc 30.8 GM/DL (32-36); Mean Corpuscular Volume 108.2 FL (87-102); Mean Platelet Volume 9.8 FL (9.6-12.0); Monocytes # 0.4 10*3/uL (0.11-0.8); Monocytes % 8.2 % (1.7-12.7); Neutrophils % 67.3 % (38.7-73.9); Red Blood Count 2.19 MC/CUMM (3.8-5.5); Red Cell Distribution Width 16.4 % (9.3-17.3); White Blood Count 4.4 T/CUMM (4-12)
[2022-05-01 09:09] LABS: Hemoglobin 7.3 GM/DL (14.0-18.0); Platelet Count 53 T/CUMM (130-400)
[2022-05-01 09:17] LABS: Osmolality,Calculated 274.2 MOS/KG (273-304)
[2022-05-01 09:19] LABS: Platelet Estimate Decreased
[2022-05-01] MEDS: GABAPENTIN 300 MG CAPSULE PO SCH (10:18)
[2022-05-01] MEDS: PANTOPRAZOLE 40 MG TABLET PO SCH (10:19)
[2022-05-01] MEDS: PIPERACILLIN/TAZOBACTAM 3,375 MG in SODIUM CHLORIDE 0.9% 100 ML IV SCH (10:19)
[2022-05-01 12:00] VITALS: BP 131/83
[2022-05-01] MEDS: ENOXAPARIN 30 MG/0.3 ML SYRINGE SUBCUT SCH (12:20)
== END 2022-05-01 12:40 | DRG 40 ==
LOC: N.SDSINP 05:49 → N.3E 15:41
PROVIDERS: ADMIT Student in an Organized Health Care Education/Training Program; ATTEND Student in an Organized Health Care Education/Training Program

== ENCOUNTER 2022-07-17 15:53 | Inpatient (IN) ==
[2022-07-17 17:01] LABS: Basophils % 0.1 % (0.0-0.8); Eosinophils % 0.3 % (0.00-10.9); Hematocrit 27.3 VOL% (42.0-52.0); Immature Granulocytes % 1.6 %; Immature Granulocytes Absolute 0.22 #; Lymphocytes # 1.3 10*3/uL (1.4-4.0); Lymphocytes % 9.6 % (21.2-54.2); Mean Corpuscular Volume 99.3 FL (87-102); Mean Platelet Volume 10.7 FL (9.6-12.0); Monocytes % 7.5 % (1.7-12.7); Neutrophils % 80.9 % (38.7-73.9); Platelet Count 41 T/CUMM (130-400); Red Blood Count 2.75 MC/CUMM (3.8-5.5); Red Cell Distribution Width 16.2 % (9.3-17.3); White Blood Count 13.6 T/CUMM (4-12)
[2022-07-17] MEDS ORDERED: VANCOMYCIN INJ 1,000 MG in SODIUM CHLORIDE 0.9% 250 ML IV STA (17:08)
[2022-07-17] MEDS ORDERED: PIPERACILLIN/TAZOBACTAM 3,375 MG in SODIUM CHLORIDE 0.9% 100 ML IV STA (17:08)
[2022-07-17] MEDS ORDERED: CLINDAMYCIN INJ 600 MG/50 ML PREMIX IV STA (17:08)
[2022-07-17 17:09] LABS: INR 1.1; PT Patient Result 12.5 SECS (10.1-12.1); Partial Thromboplastin Time 33.6 SECS (23.7-32.9)
[2022-07-17] MEDS ORDERED: SODIUM CHLORIDE 0.9% 1,000 ML IV STA (17:10)
[2022-07-17 17:13] LABS: Osmolality,Calculated 295.2 MOS/KG (273-304); Potassium 4.5 MMOL/L (3.5-5.1)
[2022-07-17] MEDS ORDERED: ONDANSETRON 4 MG/2 ML VIAL IV PRN (17:48)
[2022-07-17] MEDS ORDERED: propofoL 200 MG/20 ML VIAL IV ONE (17:54)
[2022-07-17] MEDS ORDERED: MIDAZOLAM 2 MG/2 ML VIAL ONE ×2 (17:54→19:33)
[2022-07-17] MEDS ORDERED: fentaNYL 100 MCG/2 ML VIAL ONE (17:54)
[2022-07-17] MEDS ORDERED: LIDOCAINE 2% 5 ML VIAL ONE (17:54)
[2022-07-17] MEDS ORDERED: ROCURONIUM 50 MG/5 ML VIAL IV ONE (17:54)
[2022-07-17] MEDS ORDERED: SODIUM CHLORIDE 0.9% 1,000 ML IV SCH (18:00)
[2022-07-17 18:01] LABS: Lymphocytes 8 % (20-55); Nucleated Red Blood Cells 1 /100 WBC (0-5); Total Cells Counted 100
[2022-07-17 18:02] LABS: Platelet Estimate Decreased
[2022-07-17] MEDS ORDERED: PHENYLEPHRINE 10 MG/1 ML VIAL IV ONE (18:12)
[2022-07-17] MEDS ORDERED: DESMOPRESSIN IV ONE (19:00)
[2022-07-17] MEDS ORDERED: SODIUM CHLORIDE 0.9% IV ONE (19:00)
[2022-07-17] MEDS ORDERED: SODIUM CHLORIDE 0.9% 1,000 ML IV PRN (19:02)
[2022-07-17] MEDS ORDERED: SUGAMMADEX 200 MG/2 ML VIAL IV ONE (19:25)
[2022-07-17] MEDS ORDERED: CLINDAMYCIN INJ 600 MG/50 ML PREMIX IV ONE (19:33)
[2022-07-17] MEDS ORDERED: PHENYLEPHRINE DRIP 40 MG/250 ML PREMIX IV PRN (20:02)
[2022-07-17] MEDS ORDERED: PHENYLEPHRINE DRIP 40 MG/250 ML PREMIX IV ONE (20:02)
[2022-07-17] MEDS ORDERED: MIDAZOLAM 10 MG/2 ML VIAL ONE (20:02)
[2022-07-17] MEDS ORDERED: MIDAZOLAM 2 MG/2 ML VIAL IV ONE (20:02)
[2022-07-17 20:21] LABS: ABG Base Excess -4.7 MMOL/L (-2.5-2.5); ABG HCO3 20.5 MMOL/L (20-26); ABG Oxygen Saturation 99.2 % (95-100); ABG PH 7.293 (7.35-7.45); ABG TCO2 20.1 MMOL/L (23-27)
[2022-07-17] MEDS: MIDAZOLAM 100 MG in SODIUM CHLORIDE 0.9% 80 ML IV PRN (20:30)
[2022-07-17] MEDS ORDERED: NOREPINEPHRINE 4 MG/4 ML VIAL IV ONE (20:37)
[2022-07-17] MEDS: NOREPINEPHRINE 8 MG in SODIUM CHLORIDE 0.9% 242 ML IV PRN (20:45)
[2022-07-17] MEDS ORDERED: INSULIN GLARGINE 100 UNIT/ML SUBCUT SCH (21:00)
[2022-07-17] MEDS: fentaNYL INJ 1,250 MCG in SODIUM CHLORIDE 0.9% 225 ML IV PRN (21:50)
[2022-07-17] MEDS: CLINDAMYCIN INJ 600 MG/50 ML PREMIX IV SCH (22:01)
[2022-07-18] MEDS: INSULIN LISPRO 100 UNIT/ML SUBCUT SCH ×6 (00:26→20:21)
[2022-07-18] MEDS: fentaNYL INJ 1,250 MCG in SODIUM CHLORIDE 0.9% 225 ML IV PRN ×3 (01:25→16:30)
[2022-07-18 01:33] LABS: Albumin 2.2 G/DL (3.4-5.0); Bilirubin,Total 1.2 MG/DL (0.20-1.00); Calcium 7.4 MG/DL (8.5-10.1); Osmolality,Calculated 292.8 MOS/KG (273-304); Potassium 5.7 MMOL/L (3.5-5.1); Total Protein 7.1 G/DL (6.4-8.2)
[2022-07-18] MEDS ORDERED: PIPERACILLIN/TAZOBACTAM 3,375 MG in SODIUM CHLORIDE 0.9% 100 ML IV SCH (02:00)
[2022-07-18] MEDS: CLINDAMYCIN INJ 600 MG/50 ML PREMIX IV SCH ×3 (03:00→20:20)
[2022-07-18] MEDS: MIDAZOLAM 100 MG in SODIUM CHLORIDE 0.9% 80 ML IV PRN ×2 (03:46→16:00)
[2022-07-18 05:28] LABS: Basophils # 0.1 10*3/uL (0.0-0.2); Basophils % 0.3 % (0.0-0.8); Eosinophils % 0.1 % (0.00-10.9); Hematocrit 28.9 VOL% (42.0-52.0); Hemoglobin 9.6 GM/DL (14.0-18.0); Immature Granulocytes % 2.5 %; Immature Granulocytes Absolute 0.41 #; Lymphocytes # 1.7 10*3/uL (1.4-4.0); Lymphocytes % 10.8 % (21.2-54.2); Mean Corpuscular HGB Conc 33.2 GM/DL (32-36); Monocytes # 1.3 10*3/uL (0.11-0.8); NRBC # 0.02 10*3/uL; Neutrophils % 78.3 % (38.7-73.9); Red Blood Count 2.92 MC/CUMM (3.8-5.5); Red Cell Distribution Width 16.7 % (9.3-17.3); White Blood Count 16.2 T/CUMM (4-12)
[2022-07-18 05:32] LABS: Platelet Count 34 T/CUMM (130-400)
[2022-07-18 05:42] LABS: % Iron Saturation 40.4 % (18-50)
[2022-07-18 06:07] LABS: Albumin 1.9 G/DL (3.4-5.0); Bilirubin,Total 1.1 MG/DL (0.20-1.00); Calcium 7.1 MG/DL (8.5-10.1); Osmolality,Calculated 296.8 MOS/KG (273-304); Potassium 5.3 MMOL/L (3.5-5.1); Total Protein 6.5 G/DL (6.4-8.2)
[2022-07-18 06:25] LABS: Folate 8.52 NG/ML (5.38-24.0)
[2022-07-18 06:52] LABS: Platelet Estimate Decreased
[2022-07-18 07:20] LABS: Cholesterol 87 MG/DL (50-200); HDL Cholesterol < 10 MG/DL (40-60); Triglycerides 244 MG/DL (2-150); VLDL Cholesterol 48.8 MG/DL
[2022-07-18] MEDS: HYDROCORTISONE 100 MG VIAL IV SCH ×2 (08:46→15:47)
[2022-07-18] MEDS: MEROPENEM 500 MG in SODIUM CHLORIDE 0.9% 100 ML IV SCH (08:47)
[2022-07-18] MEDS: SODIUM BICARB INJ 100 MEQ in STERILE WATER INJ 1,000 ML IV SCH ×2 (09:38→23:45)
[2022-07-18] MEDS: INSULIN GLARGINE 100 UNIT/ML SUBCUT SCH (09:38)
[2022-07-18] MEDS ORDERED: ROCURONIUM 50 MG/5 ML VIAL IV ONE (10:09)
[2022-07-18] MEDS ORDERED: MIDAZOLAM 2 MG/2 ML VIAL ONE (10:09)
[2022-07-18 10:33] LABS: ABG Base Excess -3.8 MMOL/L (-2.5-2.5); ABG HCO3 21.2 MMOL/L (20-26); ABG Oxygen Saturation 99.4 % (95-100); ABG PCO2 32.1 MM HG (35-48); ABG PH 7.405 (7.35-7.45); ABG TCO2 18.3 MMOL/L (23-27)
[2022-07-18] MEDS ORDERED: CLINDAMYCIN INJ 600 MG in PREMIX 1 EACH IV ONE (11:12)
[2022-07-18 11:27] LABS: Hepatitis B Core IgM Quant 0.09 Index; Hepatitis B Surface Ag Quant < 0.10 Index; Hepatitis B Surface Ag Result Non-Reactive (NonReactive); Hepatitis C Virus Ab Quant 0.12 Index; Hepatitis C Virus Ab Result Non-Reactive (NonReactive)
[2022-07-18] MEDS ORDERED: MORPHINE 2 MG/1 ML SYRINGE IV ONE (13:25)
[2022-07-18] MEDS ORDERED: NITROGLYCERIN SL 0.4 MG TABLET SL ONE ×2 (13:27→13:28)
[2022-07-18 14:04] LABS: ABG Base Excess -4.3 MMOL/L (-2.5-2.5); ABG HCO3 20.8 MMOL/L (20-26); ABG Oxygen Saturation 97.4 % (95-100); ABG PCO2 32.1 MM HG (35-48); ABG PH 7.396 (7.35-7.45); ABG TCO2 17.8 MMOL/L (23-27)
[2022-07-18] MEDS ORDERED: DIGOXIN 0.5 MG/2 ML AMP ONE (15:05)
[2022-07-18] MEDS ORDERED: DIGOXIN 0.5 MG/2 ML AMP IV ONE (15:05)
[2022-07-18 15:08] LABS: Basophils % 0.3 % (0.0-0.8); Hematocrit 30.4 VOL% (42.0-52.0); Hemoglobin 10.4 GM/DL (14.0-18.0); Immature Granulocytes Absolute 0.28 #; Lymphocytes # 1.2 10*3/uL (1.4-4.0); Lymphocytes % 12.3 % (21.2-54.2); Mean Corpuscular HGB Conc 34.2 GM/DL (32-36); Mean Corpuscular Volume 95.9 FL (87-102); Mean Platelet Volume 11.1 FL (9.6-12.0); Monocytes # 0.7 10*3/uL (0.11-0.8); NRBC # 0.02 10*3/uL; Neutrophils % 77.4 % (38.7-73.9); Red Blood Count 3.17 MC/CUMM (3.8-5.5); Red Cell Distribution Width 16.8 % (9.3-17.3); White Blood Count 9.5 T/CUMM (4-12)
[2022-07-18 15:10] LABS: Osmolality,Calculated 295.7 MOS/KG (273-304); Potassium 5.2 MMOL/L (3.5-5.1)
[2022-07-18 15:12] LABS: Platelet Count 31 T/CUMM (130-400)
[2022-07-18] MEDS ORDERED: AMIODARONE INJ 150 MG in DEXTROSE 5% 100 ML IV ONE (15:21)
[2022-07-18] MEDS ORDERED: NITROGLYCERIN DRIP 50 MG/250 ML BOTTLE IV PRN (15:23)
[2022-07-18] MEDS ORDERED: AMIODARONE 150 MG/3 ML VIAL ONE (15:24)
[2022-07-18] MEDS ORDERED: AMIODARONE 450 MG/9 ML VIAL IV ONE (15:24)
[2022-07-18] MEDS ORDERED: AMIODARONE INJ 450 MG in DEXTROSE 5% 241 ML IV SCH (15:30)
[2022-07-18 15:39] LABS: Anisocytosis 1+; Band Neutrophils 5 % (0-10); Eosinophils 1 % (0-10); Lymphocytes 10 % (20-55); Platelet Estimate Decreased; Total Cells Counted 100
[2022-07-18 17:02] LABS: Glucose,Urine (UA) Negative (Negative); Hyaline Casts,Urine 7 /LPF (0-3); Ketones,Urine Negative (Negative); Mucus,Urine Occasional /LPF (Occasional); Nitrite,Urine Negative (Negative); Protein,Urine 100 mg/dL (Negative); RBC,Urine 285 /HPF (0-4); Urine Appearance Slightly Hazy (Clear); Urine Color Yellow (Yellow); Urine Specific Gravity 1.015 (1.001-1.035)
[2022-07-18 17:03] LABS: Bilirubin,Urine Negative (Negative); Blood, Urine Large mg/dL (Negative); Urine Urobilinogen 0.2 eU/dL (<2.0)
[2022-07-18] MEDS ORDERED: SODIUM BICARBONATE 50 MEQ/50 ML SYRINGE IV ONE ×2 (17:32→18:39)
[2022-07-18] MEDS ORDERED: EPINEPHrine 1 MG/10 ML SYRINGE IV ONE ×3 (17:32→18:38)
[2022-07-18] MEDS ORDERED: CALCIUM CHLORIDE 1,000 MG/10 ML SYRINGE IV ONE (17:35)
[2022-07-18] MEDS ORDERED: ATROPINE 1 MG/10 ML SYRINGE IV ONE (18:00)
[2022-07-18 18:08] LABS: Basophils # 0.1 10*3/uL (0.0-0.2); Basophils % 0.4 % (0.0-0.8); Eosinophils % 0.1 % (0.00-10.9); Hematocrit 30.9 VOL% (42.0-52.0); Immature Granulocytes % 8.4 %; Immature Granulocytes Absolute 1.57 #; Lymphocytes # 2.2 10*3/uL (1.4-4.0); Lymphocytes % 11.9 % (21.2-54.2); Mean Corpuscular HGB Conc 32.4 GM/DL (32-36); Mean Corpuscular Volume 100.7 FL (87-102); Mean Platelet Volume 11.4 FL (9.6-12.0); Monocytes # 1.2 10*3/uL (0.11-0.8); Monocytes % 6.6 % (1.7-12.7); NRBC # 0.08 10*3/uL; Neutrophils % 72.6 % (38.7-73.9); Platelet Count 46 T/CUMM (130-400); Red Blood Count 3.07 MC/CUMM (3.8-5.5); Red Cell Distribution Width 17.2 % (9.3-17.3); White Blood Count 18.6 T/CUMM (4-12)
[2022-07-18 18:09] LABS: ABG Base Excess -9.2 MMOL/L (-2.5-2.5); ABG PCO2 30.9 MM HG (35-48); ABG PO2 88.6 MM HG (80-95); ABG TCO2 14.6 MMOL/L (23-27)
[2022-07-18 18:22] LABS: Calcium 7.9 MG/DL (8.5-10.1); Osmolality,Calculated 303.8 MOS/KG (273-304); Potassium 4.5 MMOL/L (3.5-5.1)
[2022-07-18] MEDS ORDERED: VASOPRESSIN 100 UNITS in SODIUM CHLORIDE 0.9% 95 ML IV PRN (19:19)
[2022-07-18] MEDS ORDERED: SODIUM BICARBONATE 50 MEQ/50 ML VIAL IV ONE ×2 (20:14→20:16)
[2022-07-18 20:16] LABS: Arterial Bicarbonate iSTAT 16.7 MMOL/L (20-26); Arterial pH iSTAT 7.188 (7.35-7.45)
[2022-07-18] MEDS: AMIODARONE INJ 450 MG in DEXTROSE 5% 241 ML IV SCH (23:04)
[2022-07-19] MEDS: INSULIN LISPRO 100 UNIT/ML SUBCUT SCH ×3 (00:07→08:26)
[2022-07-19] MEDS: HYDROCORTISONE 100 MG VIAL IV SCH ×3 (00:07→15:03)
[2022-07-19] MEDS: fentaNYL INJ 1,250 MCG in SODIUM CHLORIDE 0.9% 225 ML IV PRN ×3 (01:06→17:30)
[2022-07-19 03:22] LABS: Basophils # 0.1 10*3/uL (0.0-0.2); Basophils % 0.7 % (0.0-0.8); Hematocrit 32.2 VOL% (42.0-52.0); Hemoglobin 10.4 GM/DL (14.0-18.0); Immature Granulocytes Absolute 1.17 #; Lymphocytes % 4.9 % (21.2-54.2); Mean Corpuscular HGB Conc 32.3 GM/DL (32-36); Mean Corpuscular Volume 98.5 FL (87-102); Mean Platelet Volume 10.9 FL (9.6-12.0); Monocytes # 0.9 10*3/uL (0.11-0.8); Monocytes % 4.5 % (1.7-12.7); Neutrophils % 83.9 % (38.7-73.9); Platelet Count 60 T/CUMM (130-400); Red Blood Count 3.27 MC/CUMM (3.8-5.5); Red Cell Distribution Width 17.2 % (9.3-17.3); White Blood Count 19.6 T/CUMM (4-12)
[2022-07-19 03:36] LABS: Calcium 7.4 MG/DL (8.5-10.1); Osmolality,Calculated 307.4 MOS/KG (273-304); Potassium 3.9 MMOL/L (3.5-5.1)
[2022-07-19 03:44] LABS: Lymphocytes 6 % (20-55); Nucleated Red Blood Cells 2 /100 WBC (0-5); Platelet Estimate Decreased; Total Cells Counted 100
[2022-07-19] MEDS: CLINDAMYCIN INJ 600 MG/50 ML PREMIX IV SCH ×3 (03:52→20:00)
[2022-07-19 04:02] LABS: Arterial Base Excess iSTAT 1 MMOL/L (-2.5-2.5); Arterial Bicarbonate iSTAT 25.6 MMOL/L (20-26); Arterial O2 Saturation iSTAT 100 % (95-100); Arterial PCO2 iSTAT 41 MM HG (35-48); Arterial PO2 iSTAT 205 MM HG (80-95); Arterial Total CO2 iSTAT 27 MMO/L (23-27); Arterial pH iSTAT 7.407 (7.35-7.45)
[2022-07-19 08:20] LABS: CKMB % 11.28 %
[2022-07-19] MEDS: INSULIN GLARGINE 100 UNIT/ML SUBCUT SCH (08:26)
[2022-07-19] MEDS: MEROPENEM 500 MG in SODIUM CHLORIDE 0.9% 100 ML IV SCH (08:26)
[2022-07-19] MEDS ORDERED: INSULIN REGULAR 100 UNIT/ML IV ONE (08:28)
[2022-07-19 08:31] LABS: High Sensitive Troponin I* 7190.4 ng/L (0-78)
[2022-07-19] MEDS ORDERED: DEXTROSE 10% 250 ML BAG IV PRN ×2 (08:31→08:32)
[2022-07-19] MEDS: INSULIN REGULAR DRIP 100 ML IV SCH (09:45)
[2022-07-19 11:48] LABS: CKMB % 6.84 %
[2022-07-19 11:50] LABS: High Sensitive Troponin I* 8501.1 ng/L (0-78)
[2022-07-19] MEDS: SODIUM BICARB INJ 100 MEQ in STERILE WATER INJ 1,000 ML IV SCH (13:00)
[2022-07-19 14:26] LABS: CKMB % 2.34 %; High Sensitive Troponin I* 7942.5 ng/L (0-78)
[2022-07-19] MEDS: AMIODARONE INJ 450 MG in DEXTROSE 5% 241 ML IV SCH (15:00)
[2022-07-20] MEDS: HYDROCORTISONE 100 MG VIAL IV SCH ×3 (00:05→20:35)
[2022-07-20] MEDS: MIDAZOLAM 100 MG in SODIUM CHLORIDE 0.9% 80 ML IV PRN (01:50)
[2022-07-20] MEDS: fentaNYL INJ 1,250 MCG in SODIUM CHLORIDE 0.9% 225 ML IV PRN ×5 (03:26→23:25)
[2022-07-20 04:05] LABS: Basophils % 0.2 % (0.0-0.8); Hemoglobin 8.8 GM/DL (14.0-18.0); Immature Granulocytes % 1.4 %; Immature Granulocytes Absolute 0.18 #; Lymphocytes # 0.9 10*3/uL (1.4-4.0); Lymphocytes % 7.5 % (21.2-54.2); Mean Corpuscular HGB Conc 33.8 GM/DL (32-36); Monocytes # 0.6 10*3/uL (0.11-0.8); Monocytes % 4.9 % (1.7-12.7); NRBC # 0.02 10*3/uL; Red Blood Count 2.68 MC/CUMM (3.8-5.5); Red Cell Distribution Width 17.1 % (9.3-17.3); White Blood Count 12.5 T/CUMM (4-12)
[2022-07-20 04:07] LABS: Platelet Count 36 T/CUMM (130-400)
[2022-07-20 04:20] LABS: Calcium 6.6 MG/DL (8.5-10.1); Potassium 4.4 MMOL/L (3.5-5.1)
[2022-07-20 04:23] LABS: Platelet Estimate Decreased
[2022-07-20] MEDS: CLINDAMYCIN INJ 600 MG/50 ML PREMIX IV SCH ×3 (04:25→20:08)
[2022-07-20 04:36] LABS: ABG Base Excess 4.5 MMOL/L (-2.5-2.5); ABG HCO3 28.5 MMOL/L (20-26); ABG Oxygen Saturation 98.4 % (95-100); ABG PCO2 34.5 MM HG (35-48); ABG PH 7.511 (7.35-7.45); ABG TCO2 25.6 MMOL/L (23-27)
[2022-07-20] MEDS: AMIODARONE INJ 450 MG in DEXTROSE 5% 241 ML IV SCH (06:00)
[2022-07-20] MEDS: SODIUM BICARB INJ 100 MEQ in STERILE WATER INJ 1,000 ML IV SCH (07:13)
[2022-07-20] MEDS: MEROPENEM 500 MG in SODIUM CHLORIDE 0.9% 100 ML IV SCH (07:20)
[2022-07-20] MEDS: INSULIN REGULAR DRIP 100 ML IV SCH (07:38)
[2022-07-20] MEDS ORDERED: EPOETIN ALFA-EPBX 4,000 UNIT/ML VIAL IV PRN (09:03)
[2022-07-20] MEDS: NOREPINEPHRINE 8 MG in SODIUM CHLORIDE 0.9% 242 ML IV PRN (09:30)
[2022-07-20] MEDS: INSULIN GLARGINE 100 UNIT/ML SUBCUT SCH (09:48)
[2022-07-20] MEDS ORDERED: INSULIN LISPRO 100 UNIT/ML SUBCUT SCH (10:00)
[2022-07-20] MEDS: INSULIN LISPRO 100 UNIT/ML SUBCUT SCH ×4 (11:48→23:50)
[2022-07-20] MEDS ORDERED: MIDAZOLAM 2 MG/2 ML VIAL ONE (12:37)
[2022-07-20] MEDS ORDERED: fentaNYL 100 MCG/2 ML VIAL ONE (13:14)
[2022-07-20] MEDS ORDERED: SEVOFLURANE 1 UNIT/15 MINUTE INH ONE (13:28)
[2022-07-20] MEDS ORDERED: SODIUM CHLORIDE 0.9% 250 ML IV ONE (13:28)
[2022-07-20] MEDS ORDERED: AMIODARONE 200 MG TABLET PO SCH (13:30)
[2022-07-20] MEDS: AMIODARONE 200 MG TABLET NG SCH ×2 (13:50→20:08)
[2022-07-20] MEDS ORDERED: HEPARIN 10,000 UNIT/10 ML VIAL IV PRN (19:27)
[2022-07-21] MEDS: MIDAZOLAM 100 MG in SODIUM CHLORIDE 0.9% 80 ML IV PRN ×2 (00:46→21:17)
[2022-07-21 02:53] LABS: Arterial Base Excess iSTAT 4 MMOL/L (-2.5-2.5); Arterial Bicarbonate iSTAT 27.6 MMOL/L (20-26); Arterial O2 Saturation iSTAT 97 % (95-100); Arterial PCO2 iSTAT 36 MM HG (35-48); Arterial PO2 iSTAT 85 MM HG (80-95); Arterial Total CO2 iSTAT 29 MMO/L (23-27); Arterial pH iSTAT 7.496 (7.35-7.45)
[2022-07-21] MEDS: CLINDAMYCIN INJ 600 MG/50 ML PREMIX IV SCH ×3 (04:19→20:55)
[2022-07-21] MEDS: INSULIN LISPRO 100 UNIT/ML SUBCUT SCH ×5 (04:19→20:55)
[2022-07-21 04:21] LABS: Hematocrit 25.8 VOL% (42.0-52.0); Hemoglobin 8.3 GM/DL (14.0-18.0); Immature Granulocytes % 1.6 %; Immature Granulocytes Absolute 0.11 #; Lymphocytes # 0.7 10*3/uL (1.4-4.0); Lymphocytes % 9.5 % (21.2-54.2); Mean Corpuscular HGB Conc 32.2 GM/DL (32-36); Mean Corpuscular Volume 100.4 FL (87-102); Mean Platelet Volume 11.6 FL (9.6-12.0); Monocytes # 0.3 10*3/uL (0.11-0.8); Monocytes % 4.7 % (1.7-12.7); NRBC # 0.03 10*3/uL; Neutrophils % 84.2 % (38.7-73.9); Red Blood Count 2.57 MC/CUMM (3.8-5.5); Red Cell Distribution Width 16.6 % (9.3-17.3); White Blood Count 7.1 T/CUMM (4-12)
[2022-07-21 04:23] LABS: Platelet Count 37 T/CUMM (130-400)
[2022-07-21 04:26] LABS: Calcium 6.4 MG/DL (8.5-10.1); Osmolality,Calculated 310.2 MOS/KG (273-304); Potassium 5.1 MMOL/L (3.5-5.1)
[2022-07-21 04:41] LABS: Platelet Estimate Decreased
[2022-07-21] MEDS: fentaNYL INJ 1,250 MCG in SODIUM CHLORIDE 0.9% 225 ML IV PRN ×4 (04:41→22:53)
[2022-07-21] MEDS ORDERED: SODIUM HYPOCHLORITE 0.25% IRRIG 473 ML BOTTLE TOP SCH (06:00)
[2022-07-21] MEDS ORDERED: SODIUM HYPOCHLORITE 0.25% IRRIG 473 ML BOTTLE TOP PRN (06:00)
[2022-07-21] MEDS: HYDROCORTISONE 100 MG VIAL IV SCH (08:12)
[2022-07-21] MEDS: INSULIN GLARGINE 100 UNIT/ML SUBCUT SCH (08:12)
[2022-07-21] MEDS: AMIODARONE 200 MG TABLET NG SCH ×2 (08:12→20:57)
[2022-07-21] MEDS: MEROPENEM 500 MG in SODIUM CHLORIDE 0.9% 100 ML IV SCH (08:12)
[2022-07-21] MEDS ORDERED: HYDROCORTISONE 100 MG VIAL IV SCH (09:00)
[2022-07-21] MEDS: CHOLECALCIFEROL 5,000 UNIT TABLET PO SCH (09:13)
[2022-07-21] MEDS: FAMOTIDINE 20 MG/2 ML VIAL IV SCH (09:13)
[2022-07-21] MEDS: NOREPINEPHRINE 8 MG in SODIUM CHLORIDE 0.9% 242 ML IV PRN (09:14)
[2022-07-21] MEDS: SODIUM ZIRCONIUM CYCLOSILICATE 10 GM PACK PO SCH ×2 (10:00→20:56)
[2022-07-21] MEDS: GABAPENTIN 50 MG/ML 30 ML/BOTTLE PO SCH ×3 (10:00→20:56)
[2022-07-22] MEDS: INSULIN LISPRO 100 UNIT/ML SUBCUT SCH ×7 (00:14→23:27)
[2022-07-22 02:44] LABS: ABG Base Excess 1.9 MMOL/L (-2.5-2.5); ABG HCO3 26.1 MMOL/L (20-26); ABG Oxygen Saturation 96.8 % (95-100); ABG PCO2 34.6 MM HG (35-48); ABG PH 7.473 (7.35-7.45); ABG PO2 90.8 MM HG (80-95)
[2022-07-22 03:31] LABS: Basophils % 0.1 % (0.0-0.8); Eosinophils # 0.1 10*3/uL (0.0-0.87); Eosinophils % 0.4 % (0.00-10.9); Hematocrit 29.3 VOL% (42.0-52.0); Hemoglobin 9.4 GM/DL (14.0-18.0); Immature Granulocytes % 4.1 %; Immature Granulocytes Absolute 0.48 #; Lymphocytes # 1.7 10*3/uL (1.4-4.0); Lymphocytes % 14.7 % (21.2-54.2); Mean Corpuscular HGB Conc 32.1 GM/DL (32-36); Mean Corpuscular Volume 99.3 FL (87-102); Mean Platelet Volume 11.9 FL (9.6-12.0); Monocytes # 0.7 10*3/uL (0.11-0.8); NRBC # 0.03 10*3/uL; Neutrophils % 74.7 % (38.7-73.9); Platelet Count 57 T/CUMM (130-400); Red Blood Count 2.95 MC/CUMM (3.8-5.5); Red Cell Distribution Width 16.2 % (9.3-17.3); White Blood Count 11.7 T/CUMM (4-12)
[2022-07-22 03:42] LABS: PT Patient Result 11.3 SECS (10.1-12.1); Partial Thromboplastin Time 25.4 SECS (23.7-32.9)
[2022-07-22 03:48] LABS: Platelet Estimate Decreased
[2022-07-22 03:49] LABS: Albumin 1.8 G/DL (3.4-5.0); Bilirubin,Total 0.5 MG/DL (0.20-1.00); Calcium 6.4 MG/DL (8.5-10.1); Osmolality,Calculated 319.5 MOS/KG (273-304); Potassium 3.9 MMOL/L (3.5-5.1)
[2022-07-22] MEDS: fentaNYL INJ 1,250 MCG in SODIUM CHLORIDE 0.9% 225 ML IV PRN ×4 (04:22→20:06)
[2022-07-22] MEDS: CLINDAMYCIN INJ 600 MG/50 ML PREMIX IV SCH ×3 (04:57→20:22)
[2022-07-22] MEDS: AMIODARONE 200 MG TABLET NG SCH ×2 (09:21→20:22)
[2022-07-22] MEDS: SODIUM ZIRCONIUM CYCLOSILICATE 10 GM PACK PO SCH (09:21)
[2022-07-22] MEDS: FAMOTIDINE 20 MG/2 ML VIAL IV SCH (09:21)
[2022-07-22] MEDS: MEROPENEM 500 MG in SODIUM CHLORIDE 0.9% 100 ML IV SCH (09:22)
[2022-07-22] MEDS: CHOLECALCIFEROL 5,000 UNIT TABLET PO SCH (09:22)
[2022-07-22] MEDS: INSULIN GLARGINE 100 UNIT/ML SUBCUT SCH (09:22)
[2022-07-22] MEDS: GABAPENTIN 50 MG/ML 30 ML/BOTTLE PO SCH ×3 (09:22→20:23)
[2022-07-22] MEDS: MIDAZOLAM 100 MG in SODIUM CHLORIDE 0.9% 80 ML IV PRN (14:00)
[2022-07-23] MEDS: fentaNYL INJ 1,250 MCG in SODIUM CHLORIDE 0.9% 225 ML IV PRN ×2 (01:04→06:02)
[2022-07-23 03:56] LABS: Basophils # 0.1 10*3/uL (0.0-0.2); Basophils % 0.4 % (0.0-0.8); Eosinophils # 0.3 10*3/uL (0.0-0.87); Eosinophils % 1.8 % (0.00-10.9); Hematocrit 33.1 VOL% (42.0-52.0); Hemoglobin 10.8 GM/DL (14.0-18.0); Immature Granulocytes % 7.6 %; Immature Granulocytes Absolute 1.25 #; Lymphocytes % 12.1 % (21.2-54.2); Mean Corpuscular HGB Conc 32.6 GM/DL (32-36); Mean Corpuscular Volume 99.4 FL (87-102); Mean Platelet Volume 12.1 FL (9.6-12.0); NRBC # 0.03 10*3/uL; Neutrophils % 72.1 % (38.7-73.9); Platelet Count 77 T/CUMM (130-400); Red Blood Count 3.33 MC/CUMM (3.8-5.5); Red Cell Distribution Width 16.1 % (9.3-17.3); White Blood Count 16.5 T/CUMM (4-12)
[2022-07-23 04:14] LABS: Calcium 6.8 MG/DL (8.5-10.1); Osmolality,Calculated 294.8 MOS/KG (273-304); Potassium 5.1 MMOL/L (3.5-5.1)
[2022-07-23] MEDS: MIDAZOLAM 100 MG in SODIUM CHLORIDE 0.9% 80 ML IV PRN ×2 (04:14→16:19)
[2022-07-23 04:17] LABS: Arterial Base Excess iSTAT 3 MMOL/L (-2.5-2.5); Arterial Bicarbonate iSTAT 26.9 MMOL/L (20-26); Arterial O2 Saturation iSTAT 99 % (95-100); Arterial PCO2 iSTAT 37 MM HG (35-48); Arterial PO2 iSTAT 109 MM HG (80-95); Arterial Total CO2 iSTAT 28 MMO/L (23-27); Arterial pH iSTAT 7.467 (7.35-7.45)
[2022-07-23 04:26] LABS: Lymphocytes 13 % (20-55); Total Cells Counted 100
[2022-07-23 04:27] LABS: Platelet Estimate Decreased
[2022-07-23] MEDS: INSULIN LISPRO 100 UNIT/ML SUBCUT SCH ×6 (04:32→23:22)
[2022-07-23] MEDS: CLINDAMYCIN INJ 600 MG/50 ML PREMIX IV SCH ×3 (04:32→20:47)
[2022-07-23] MEDS: CHOLECALCIFEROL 5,000 UNIT TABLET PO SCH (09:39)
[2022-07-23] MEDS: AMIODARONE 200 MG TABLET NG SCH ×2 (09:39→20:47)
[2022-07-23] MEDS: MEROPENEM 500 MG in SODIUM CHLORIDE 0.9% 100 ML IV SCH (09:40)
[2022-07-23] MEDS: INSULIN GLARGINE 100 UNIT/ML SUBCUT SCH (09:40)
[2022-07-23] MEDS: GABAPENTIN 50 MG/ML 30 ML/BOTTLE PO SCH ×3 (09:42→20:47)
[2022-07-23] MEDS: FAMOTIDINE 20 MG/2 ML VIAL IV SCH (10:13)
[2022-07-23] MEDS ORDERED: VANCOMYCIN INJ 1,000 MG in SODIUM CHLORIDE 0.9% 250 ML IV PRN (11:08)
[2022-07-23] MEDS: fentaNYL INJ 2,500 MCG in SODIUM CHLORIDE 0.9% 75 ML IV PRN (11:24)
[2022-07-23] MEDS ORDERED: VANCOMYCIN INJ 2,000 MG in SODIUM CHLORIDE 0.9% 500 ML IV ONE (12:00)
[2022-07-24] MEDS: fentaNYL INJ 2,500 MCG in SODIUM CHLORIDE 0.9% 75 ML IV PRN ×3 (00:22→20:23)
[2022-07-24] MEDS: INSULIN LISPRO 100 UNIT/ML SUBCUT SCH ×5 (03:26→20:53)
[2022-07-24] MEDS: CLINDAMYCIN INJ 600 MG/50 ML PREMIX IV SCH ×4 (04:43→20:52)
[2022-07-24 04:54] LABS: Basophils % 0.2 % (0.0-0.8); Eosinophils # 0.4 10*3/uL (0.0-0.87); Eosinophils % 2.6 % (0.00-10.9); Hematocrit 29.4 VOL% (42.0-52.0); Hemoglobin 9.5 GM/DL (14.0-18.0); Immature Granulocytes % 4.5 %; Immature Granulocytes Absolute 0.67 #; Lymphocytes # 1.5 10*3/uL (1.4-4.0); Lymphocytes % 10.2 % (21.2-54.2); Mean Corpuscular HGB Conc 32.3 GM/DL (32-36); Mean Corpuscular Volume 100.3 FL (87-102); Mean Platelet Volume 11.7 FL (9.6-12.0); Monocytes # 1.1 10*3/uL (0.11-0.8); Monocytes % 7.5 % (1.7-12.7); Platelet Count 77 T/CUMM (130-400); Red Blood Count 2.93 MC/CUMM (3.8-5.5); Red Cell Distribution Width 16.3 % (9.3-17.3); White Blood Count 14.8 T/CUMM (4-12)
[2022-07-24 05:00] LABS: Calcium 6.8 MG/DL (8.5-10.1); Osmolality,Calculated 296.8 MOS/KG (273-304)
[2022-07-24 05:06] LABS: Arterial Base Excess iSTAT 0 MMOL/L (-2.5-2.5); Arterial O2 Saturation iSTAT 95 % (95-100); Arterial PCO2 iSTAT 40 MM HG (35-48); Arterial PO2 iSTAT 74 MM HG (80-95); Arterial Total CO2 iSTAT 26 MMO/L (23-27); Arterial pH iSTAT 7.405 (7.35-7.45)
[2022-07-24] MEDS: MIDAZOLAM 100 MG in SODIUM CHLORIDE 0.9% 80 ML IV PRN (05:12)
[2022-07-24 05:19] LABS: Eosinophils 4 % (0-10); Lymphocytes 9 % (20-55); Total Cells Counted 100
[2022-07-24 05:20] LABS: Platelet Estimate Decreased
[2022-07-24] MEDS: NOREPINEPHRINE 8 MG in SODIUM CHLORIDE 0.9% 242 ML IV PRN (06:30)
[2022-07-24] MEDS: FAMOTIDINE 20 MG/2 ML VIAL IV SCH (08:00)
[2022-07-24] MEDS: GABAPENTIN 50 MG/ML 30 ML/BOTTLE PO SCH ×3 (08:01→20:54)
[2022-07-24] MEDS: AMIODARONE 200 MG TABLET NG SCH ×2 (08:01→20:54)
[2022-07-24] MEDS: CHOLECALCIFEROL 5,000 UNIT TABLET PO SCH (08:02)
[2022-07-24] MEDS: INSULIN GLARGINE 100 UNIT/ML SUBCUT SCH (08:23)
[2022-07-24] MEDS: ALBUTEROL/IPRATROPIUM 3 ML NEB RESP TX SCH ×4 (11:06→22:46)
[2022-07-24] MEDS: MIDAZOLAM DRIP 100 MG/100 ML PREMIX IV PRN (15:49)
[2022-07-24] MEDS: MEROPENEM 500 MG in SODIUM CHLORIDE 0.9% 100 ML IV SCH (16:10)
[2022-07-24] MEDS ORDERED: VANCOMYCIN INJ 1,000 MG in SODIUM CHLORIDE 0.9% 250 ML IV ONE (17:00)
[2022-07-24] MEDS: COLLAGENASE OINT 30 GM TUBE TOP SCH (20:53)
[2022-07-24] MEDS: MORPHINE 2 MG/1 ML SYRINGE IV PRN (22:55)
[2022-07-25] MEDS: INSULIN LISPRO 100 UNIT/ML SUBCUT SCH ×6 (00:41→20:55)
[2022-07-25] MEDS: MORPHINE 2 MG/1 ML SYRINGE IV PRN ×2 (02:32→09:12)
[2022-07-25] MEDS: ALBUTEROL/IPRATROPIUM 3 ML NEB RESP TX SCH ×6 (03:13→23:10)
[2022-07-25] MEDS: MIDAZOLAM DRIP 100 MG/100 ML PREMIX IV PRN ×3 (03:48→19:44)
[2022-07-25] MEDS: CLINDAMYCIN INJ 600 MG/50 ML PREMIX IV SCH (04:36)
[2022-07-25 04:42] LABS: Arterial Base Excess iSTAT -1 MMOL/L (-2.5-2.5); Arterial O2 Saturation iSTAT 96 % (95-100); Arterial PCO2 iSTAT 52 MM HG (35-48); Arterial PO2 iSTAT 88 MM HG (80-95); Arterial Total CO2 iSTAT 28 MMO/L (23-27); Arterial pH iSTAT 7.308 (7.35-7.45)
[2022-07-25 05:43] LABS: Basophils # 0.1 10*3/uL (0.0-0.2); Basophils % 0.4 % (0.0-0.8); Eosinophils # 0.4 10*3/uL (0.0-0.87); Hematocrit 31.9 VOL% (42.0-52.0); Hemoglobin 10.3 GM/DL (14.0-18.0); Immature Granulocytes Absolute 0.71 #; Lymphocytes # 1.5 10*3/uL (1.4-4.0); Lymphocytes % 8.3 % (21.2-54.2); Mean Corpuscular HGB Conc 32.3 GM/DL (32-36); Mean Corpuscular Volume 100.6 FL (87-102); Monocytes # 1.4 10*3/uL (0.11-0.8); Monocytes % 7.7 % (1.7-12.7); Neutrophils % 77.6 % (38.7-73.9); Platelet Count 64 T/CUMM (130-400); Red Blood Count 3.17 MC/CUMM (3.8-5.5); Red Cell Distribution Width 16.6 % (9.3-17.3); White Blood Count 17.8 T/CUMM (4-12)
[2022-07-25 06:03] LABS: Eosinophils 1 % (0-10); Lymphocytes 9 % (20-55)
[2022-07-25 06:04] LABS: Platelet Estimate Decreased; Total Cells Counted 100
[2022-07-25 06:26] LABS: Calcium 7.2 MG/DL (8.5-10.1); Osmolality,Calculated 283.4 MOS/KG (273-304); Potassium 4.3 MMOL/L (3.5-5.1)
[2022-07-25] MEDS: fentaNYL INJ 2,500 MCG in SODIUM CHLORIDE 0.9% 75 ML IV PRN ×3 (06:43→21:11)
[2022-07-25] MEDS: FAMOTIDINE 20 MG/2 ML VIAL IV SCH (08:00)
[2022-07-25] MEDS: AMIODARONE 200 MG TABLET NG SCH ×2 (08:01→20:55)
[2022-07-25] MEDS: GABAPENTIN 50 MG/ML 30 ML/BOTTLE PO SCH ×3 (08:02→20:56)
[2022-07-25] MEDS: COLLAGENASE OINT 30 GM TUBE TOP SCH ×2 (08:02→20:56)
[2022-07-25] MEDS: CHOLECALCIFEROL 5,000 UNIT TABLET PO SCH (08:03)
[2022-07-25] MEDS: INSULIN GLARGINE 100 UNIT/ML SUBCUT SCH (08:23)
[2022-07-25] MEDS ORDERED: FUROSEMIDE 100 MG/10 ML VIAL IV ONE (11:00)
[2022-07-25] MEDS: MEROPENEM 500 MG in SODIUM CHLORIDE 0.9% 100 ML IV SCH (16:45)
[2022-07-26] MEDS: INSULIN LISPRO 100 UNIT/ML SUBCUT SCH ×7 (00:33→19:53)
[2022-07-26] MEDS: MORPHINE 2 MG/1 ML SYRINGE IV PRN (02:25)
[2022-07-26] MEDS: ALBUTEROL/IPRATROPIUM 3 ML NEB RESP TX SCH ×7 (02:52→22:41)
[2022-07-26 04:32] LABS: Arterial Base Excess iSTAT -2 MMOL/L (-2.5-2.5); Arterial O2 Saturation iSTAT 96 % (95-100); Arterial PCO2 iSTAT 48 MM HG (35-48); Arterial PO2 iSTAT 92 MM HG (80-95); Arterial Total CO2 iSTAT 25 MMO/L (23-27); Arterial pH iSTAT 7.309 (7.35-7.45)
[2022-07-26] MEDS: fentaNYL INJ 2,500 MCG in SODIUM CHLORIDE 0.9% 75 ML IV PRN ×3 (04:37→19:51)
[2022-07-26] MEDS: MIDAZOLAM DRIP 100 MG/100 ML PREMIX IV PRN ×3 (04:38→21:56)
[2022-07-26 05:04] LABS: Basophils % 0.1 % (0.0-0.8); Eosinophils # 0.3 10*3/uL (0.0-0.87); Eosinophils % 2.7 % (0.00-10.9); Hematocrit 25.4 VOL% (42.0-52.0); Hemoglobin 7.8 GM/DL (14.0-18.0); Immature Granulocytes % 2.1 %; Immature Granulocytes Absolute 0.23 #; Lymphocytes # 1.2 10*3/uL (1.4-4.0); Lymphocytes % 11.2 % (21.2-54.2); Mean Corpuscular HGB Conc 30.7 GM/DL (32-36); Mean Corpuscular Volume 104.5 FL (87-102); Mean Platelet Volume 11.4 FL (9.6-12.0); Monocytes # 1.2 10*3/uL (0.11-0.8); Monocytes % 11.2 % (1.7-12.7); Neutrophils % 72.7 % (38.7-73.9); Platelet Count 94 T/CUMM (130-400); Red Blood Count 2.43 MC/CUMM (3.8-5.5); Red Cell Distribution Width 16.7 % (9.3-17.3); White Blood Count 10.9 T/CUMM (4-12)
[2022-07-26 05:58] LABS: Calcium 7.2 MG/DL (8.5-10.1); Osmolality,Calculated 293.8 MOS/KG (273-304); Potassium 4.1 MMOL/L (3.5-5.1)
[2022-07-26] MEDS: NOREPINEPHRINE 8 MG in SODIUM CHLORIDE 0.9% 242 ML IV PRN (07:00)
[2022-07-26] MEDS: FAMOTIDINE 20 MG/2 ML VIAL IV SCH (08:17)
[2022-07-26] MEDS: AMIODARONE 200 MG TABLET NG SCH ×2 (08:19→20:42)
[2022-07-26] MEDS: CHOLECALCIFEROL 5,000 UNIT TABLET PO SCH (08:20)
[2022-07-26] MEDS: COLLAGENASE OINT 30 GM TUBE TOP SCH ×2 (08:20→20:42)
[2022-07-26] MEDS: GABAPENTIN 50 MG/ML 30 ML/BOTTLE PO SCH ×3 (08:20→20:42)
[2022-07-26] MEDS: FUROSEMIDE 40 MG/4 ML VIAL IV SCH ×3 (09:00→20:42)
[2022-07-26] MEDS: INSULIN GLARGINE 100 UNIT/ML SUBCUT SCH (09:03)
[2022-07-26] MEDS: MEROPENEM 500 MG in SODIUM CHLORIDE 0.9% 100 ML IV SCH (16:00)
[2022-07-27] MEDS: INSULIN LISPRO 100 UNIT/ML SUBCUT SCH ×7 (00:19→23:39)
[2022-07-27] MEDS: ALBUTEROL/IPRATROPIUM 3 ML NEB RESP TX SCH ×6 (03:03→23:44)
[2022-07-27] MEDS: fentaNYL INJ 2,500 MCG in SODIUM CHLORIDE 0.9% 75 ML IV PRN ×2 (03:08→11:01)
[2022-07-27] MEDS: FUROSEMIDE 40 MG/4 ML VIAL IV SCH ×2 (03:38→08:04)
[2022-07-27 04:19] LABS: Arterial Base Excess iSTAT 1 MMOL/L (-2.5-2.5); Arterial Bicarbonate iSTAT 26.4 MMOL/L (20-26); Arterial O2 Saturation iSTAT 96 % (95-100); Arterial PCO2 iSTAT 44 MM HG (35-48); Arterial PO2 iSTAT 82 MM HG (80-95); Arterial Total CO2 iSTAT 28 MMO/L (23-27); Arterial pH iSTAT 7.387 (7.35-7.45)
[2022-07-27 04:33] LABS: Basophils % 0.1 % (0.0-0.8); Eosinophils # 0.2 10*3/uL (0.0-0.87); Eosinophils % 1.7 % (0.00-10.9); Hematocrit 23.6 VOL% (42.0-52.0); Hemoglobin 7.5 GM/DL (14.0-18.0); Immature Granulocytes % 1.2 %; Immature Granulocytes Absolute 0.12 #; Mean Corpuscular HGB Conc 31.8 GM/DL (32-36); Mean Corpuscular Volume 102.2 FL (87-102); Mean Platelet Volume 11.3 FL (9.6-12.0); Monocytes # 1.2 10*3/uL (0.11-0.8); Monocytes % 11.7 % (1.7-12.7); Neutrophils % 75.3 % (38.7-73.9); Platelet Count 89 T/CUMM (130-400); Red Blood Count 2.31 MC/CUMM (3.8-5.5); Red Cell Distribution Width 16.7 % (9.3-17.3); White Blood Count 10.4 T/CUMM (4-12)
[2022-07-27 04:57] LABS: Calcium 7.2 MG/DL (8.5-10.1); Osmolality,Calculated 286.7 MOS/KG (273-304); Potassium 4.3 MMOL/L (3.5-5.1)
[2022-07-27 04:58] LABS: Platelet Estimate Decreased
[2022-07-27] MEDS: CHOLECALCIFEROL 5,000 UNIT TABLET PO SCH (08:00)
[2022-07-27] MEDS: AMIODARONE 200 MG TABLET NG SCH ×2 (08:00→21:12)
[2022-07-27] MEDS: FAMOTIDINE 20 MG/2 ML VIAL IV SCH (08:07)
[2022-07-27] MEDS: INSULIN GLARGINE 100 UNIT/ML SUBCUT SCH (08:08)
[2022-07-27] MEDS: MIDAZOLAM DRIP 100 MG/100 ML PREMIX IV PRN (08:53)
[2022-07-27] MEDS ORDERED: VANCOMYCIN INJ 1,000 MG in SODIUM CHLORIDE 0.9% 250 ML IV ONE (11:00)
[2022-07-27] MEDS: GABAPENTIN 50 MG/ML 30 ML/BOTTLE PO SCH ×3 (11:50→21:11)
[2022-07-27] MEDS: COLLAGENASE OINT 30 GM TUBE TOP SCH ×2 (11:51→21:12)
[2022-07-27] MEDS: fentaNYL 100 MCG/HR PATCH TRANSDERM SCH (13:16)
[2022-07-27] MEDS ORDERED: FUROSEMIDE 100 MG/10 ML VIAL IV SCH (15:00)
[2022-07-27] MEDS: MEROPENEM 500 MG in SODIUM CHLORIDE 0.9% 100 ML IV SCH (17:13)
[2022-07-28] MEDS: ALBUTEROL/IPRATROPIUM 3 ML NEB RESP TX SCH ×6 (03:10→23:05)
[2022-07-28] MEDS: INSULIN LISPRO 100 UNIT/ML SUBCUT SCH ×6 (03:50→23:53)
[2022-07-28 03:52] LABS: Basophils % 0.1 % (0.0-0.8); Eosinophils # 0.2 10*3/uL (0.0-0.87); Eosinophils % 1.8 % (0.00-10.9); Hematocrit 27.1 VOL% (42.0-52.0); Hemoglobin 8.6 GM/DL (14.0-18.0); Immature Granulocytes % 1.2 %; Lymphocytes # 1.3 10*3/uL (1.4-4.0); Lymphocytes % 15.2 % (21.2-54.2); Mean Corpuscular HGB Conc 31.7 GM/DL (32-36); Mean Corpuscular Volume 102.3 FL (87-102); Mean Platelet Volume 10.7 FL (9.6-12.0); Monocytes # 1.2 10*3/uL (0.11-0.8); Monocytes % 14.3 % (1.7-12.7); Neutrophils % 67.4 % (38.7-73.9); Platelet Count 83 T/CUMM (130-400); Red Blood Count 2.65 MC/CUMM (3.8-5.5); Red Cell Distribution Width 16.3 % (9.3-17.3); White Blood Count 8.5 T/CUMM (4-12)
[2022-07-28 04:06] LABS: Calcium 7.2 MG/DL (8.5-10.1); Osmolality,Calculated 293.5 MOS/KG (273-304); Phosphorous 8.1 MG/DL (2.5-4.9); Potassium 4.7 MMOL/L (3.5-5.1)
[2022-07-28 04:21] LABS: Platelet Estimate Decreased
[2022-07-28 04:23] LABS: Arterial Base Excess iSTAT -1 MMOL/L (-2.5-2.5); Arterial Bicarbonate iSTAT 24.5 MMOL/L (20-26); Arterial O2 Saturation iSTAT 94 % (95-100); Arterial PCO2 iSTAT 45 MM HG (35-48); Arterial PO2 iSTAT 74 MM HG (80-95); Arterial Total CO2 iSTAT 26 MMO/L (23-27)
[2022-07-28] MEDS: FAMOTIDINE 20 MG/2 ML VIAL IV SCH (08:12)
[2022-07-28] MEDS: GABAPENTIN 50 MG/ML 30 ML/BOTTLE PO SCH ×3 (08:13→20:45)
[2022-07-28] MEDS: AMIODARONE 200 MG TABLET NG SCH ×2 (08:14→20:45)
[2022-07-28] MEDS: INSULIN GLARGINE 100 UNIT/ML SUBCUT SCH (08:15)
[2022-07-28] MEDS: CHOLECALCIFEROL 5,000 UNIT TABLET PO SCH (08:15)
[2022-07-28] MEDS: ACETAMINOPHEN 325 MG/10.15 ML UDCUP PO PRN ×2 (09:33→17:52)
[2022-07-28] MEDS: MORPHINE 2 MG/1 ML SYRINGE IV PRN (15:29)
[2022-07-28] MEDS ORDERED: VANCOMYCIN INJ 1,000 MG in SODIUM CHLORIDE 0.9% 250 ML IV ONE (17:00)
[2022-07-28] MEDS: MEROPENEM 500 MG in SODIUM CHLORIDE 0.9% 100 ML IV SCH (17:50)
[2022-07-28] MEDS: COLLAGENASE OINT 30 GM TUBE TOP SCH ×2 (18:55→20:45)
[2022-07-29] MEDS: MORPHINE 2 MG/1 ML SYRINGE IV PRN ×2 (02:25→23:03)
[2022-07-29] MEDS ORDERED: hydrALAZINE 20 MG/1 ML VIAL IV PRN (03:17)
[2022-07-29] MEDS: ACETAMINOPHEN 325 MG/10.15 ML UDCUP PO PRN (03:38)
[2022-07-29] MEDS: ALBUTEROL/IPRATROPIUM 3 ML NEB RESP TX SCH ×6 (03:50→23:33)
[2022-07-29 04:16] LABS: Basophils % 0.2 % (0.0-0.8); Eosinophils # 0.1 10*3/uL (0.0-0.87); Hematocrit 27.2 VOL% (42.0-52.0); Hemoglobin 8.8 GM/DL (14.0-18.0); Immature Granulocytes % 1.2 %; Lymphocytes # 1.2 10*3/uL (1.4-4.0); Lymphocytes % 14.7 % (21.2-54.2); Mean Corpuscular HGB Conc 32.4 GM/DL (32-36); Mean Platelet Volume 10.7 FL (9.6-12.0); Monocytes # 1.1 10*3/uL (0.11-0.8); Monocytes % 13.5 % (1.7-12.7); Neutrophils % 69.4 % (38.7-73.9); Platelet Count 83 T/CUMM (130-400); Red Blood Count 2.72 MC/CUMM (3.8-5.5); Red Cell Distribution Width 15.9 % (9.3-17.3); White Blood Count 8.3 T/CUMM (4-12)
[2022-07-29 04:27] LABS: Calcium 7.5 MG/DL (8.5-10.1); Osmolality,Calculated 288.7 MOS/KG (273-304); Potassium 4.4 MMOL/L (3.5-5.1)
[2022-07-29] MEDS: INSULIN LISPRO 100 UNIT/ML SUBCUT SCH ×5 (04:56→20:17)
[2022-07-29 04:58] LABS: Arterial Base Excess iSTAT 1 MMOL/L (-2.5-2.5); Arterial Bicarbonate iSTAT 24.4 MMOL/L (20-26); Arterial O2 Saturation iSTAT 97 % (95-100); Arterial PCO2 iSTAT 33 MM HG (35-48); Arterial PO2 iSTAT 88 MM HG (80-95); Arterial Total CO2 iSTAT 25 MMO/L (23-27); Arterial pH iSTAT 7.481 (7.35-7.45)
[2022-07-29] MEDS: FAMOTIDINE 20 MG/2 ML VIAL IV SCH (09:00)
[2022-07-29] MEDS: INSULIN GLARGINE 100 UNIT/ML SUBCUT SCH (09:03)
[2022-07-29] MEDS: GABAPENTIN 50 MG/ML 30 ML/BOTTLE PO SCH ×3 (09:03→20:18)
[2022-07-29] MEDS: AMIODARONE 200 MG TABLET NG SCH ×2 (09:03→20:18)
[2022-07-29] MEDS: CHOLECALCIFEROL 5,000 UNIT TABLET PO SCH (09:04)
[2022-07-29] MEDS: COLLAGENASE OINT 30 GM TUBE TOP SCH ×2 (09:04→23:15)
[2022-07-29] MEDS: MEROPENEM 500 MG in SODIUM CHLORIDE 0.9% 100 ML IV SCH (16:01)
[2022-07-30] MEDS: INSULIN LISPRO 100 UNIT/ML SUBCUT SCH ×6 (00:59→20:30)
[2022-07-30] MEDS: ALBUTEROL/IPRATROPIUM 3 ML NEB RESP TX SCH ×6 (03:39→22:41)
[2022-07-30 04:13] LABS: Arterial Base Excess iSTAT -2 MMOL/L (-2.5-2.5); Arterial Bicarbonate iSTAT 23.1 MMOL/L (20-26); Arterial O2 Saturation iSTAT 94 % (95-100); Arterial PCO2 iSTAT 39 MM HG (35-48); Arterial PO2 iSTAT 71 MM HG (80-95); Arterial Total CO2 iSTAT 24 MMO/L (23-27); Arterial pH iSTAT 7.383 (7.35-7.45)
[2022-07-30 05:26] LABS: Basophils % 0.2 % (0.0-0.8); Eosinophils # 0.1 10*3/uL (0.0-0.87); Hemoglobin 7.4 GM/DL (14.0-18.0); Immature Granulocytes % 0.6 %; Immature Granulocytes Absolute 0.05 #; Lymphocytes # 1.4 10*3/uL (1.4-4.0); Mean Corpuscular HGB Conc 32.2 GM/DL (32-36); Mean Corpuscular Volume 101.8 FL (87-102); Mean Platelet Volume 11.4 FL (9.6-12.0); Monocytes # 1.1 10*3/uL (0.11-0.8); Monocytes % 12.5 % (1.7-12.7); Neutrophils % 69.7 % (38.7-73.9); Platelet Count 76 T/CUMM (130-400); Red Blood Count 2.26 MC/CUMM (3.8-5.5); Red Cell Distribution Width 15.9 % (9.3-17.3); White Blood Count 8.8 T/CUMM (4-12)
[2022-07-30 05:35] LABS: Calcium 7.2 MG/DL (8.5-10.1); Osmolality,Calculated 289.2 MOS/KG (273-304); Potassium 5.1 MMOL/L (3.5-5.1)
[2022-07-30 06:06] LABS: Platelet Estimate Decreased
[2022-07-30] MEDS: GABAPENTIN 50 MG/ML 30 ML/BOTTLE PO SCH ×3 (08:58→20:28)
[2022-07-30] MEDS: FAMOTIDINE 20 MG/2 ML VIAL IV SCH (08:58)
[2022-07-30] MEDS: fentaNYL 100 MCG/HR PATCH TRANSDERM SCH (09:01)
[2022-07-30] MEDS: CHOLECALCIFEROL 5,000 UNIT TABLET PO SCH (09:02)
[2022-07-30] MEDS: AMIODARONE 200 MG TABLET NG SCH ×2 (09:02→20:28)
[2022-07-30] MEDS: INSULIN GLARGINE 100 UNIT/ML SUBCUT SCH (09:02)
[2022-07-30] MEDS: MEROPENEM 500 MG in SODIUM CHLORIDE 0.9% 100 ML IV SCH (17:15)
[2022-07-30] MEDS: MORPHINE 2 MG/1 ML SYRINGE IV PRN (20:27)
[2022-07-30] MEDS: COLLAGENASE OINT 30 GM TUBE TOP SCH ×2 (20:28→20:29)
[2022-07-31] MEDS: INSULIN LISPRO 100 UNIT/ML SUBCUT SCH ×6 (00:31→20:14)
[2022-07-31] MEDS: ALBUTEROL/IPRATROPIUM 3 ML NEB RESP TX SCH ×7 (03:18→23:05)
[2022-07-31 03:48] LABS: Arterial Base Excess iSTAT -5 MMOL/L (-2.5-2.5); Arterial Bicarbonate iSTAT 20.6 MMOL/L (20-26); Arterial O2 Saturation iSTAT 96 % (95-100); Arterial PCO2 iSTAT 40 MM HG (35-48); Arterial PO2 iSTAT 88 MM HG (80-95); Arterial Total CO2 iSTAT 22 MMO/L (23-27); Arterial pH iSTAT 7.325 (7.35-7.45)
[2022-07-31 04:21] LABS: Basophils % 0.3 % (0.0-0.8); Eosinophils # 0.2 10*3/uL (0.0-0.87); Eosinophils % 3.1 % (0.00-10.9); Hematocrit 23.9 VOL% (42.0-52.0); Hemoglobin 7.7 GM/DL (14.0-18.0); Immature Granulocytes % 0.7 %; Immature Granulocytes Absolute 0.04 #; Lymphocytes # 0.6 10*3/uL (1.4-4.0); Lymphocytes % 10.1 % (21.2-54.2); Mean Corpuscular HGB Conc 32.2 GM/DL (32-36); Mean Corpuscular Volume 100.4 FL (87-102); Mean Platelet Volume 10.8 FL (9.6-12.0); Monocytes # 0.6 10*3/uL (0.11-0.8); Monocytes % 10.9 % (1.7-12.7); Neutrophils % 74.9 % (38.7-73.9); Platelet Count 68 T/CUMM (130-400); Red Blood Count 2.38 MC/CUMM (3.8-5.5); Red Cell Distribution Width 15.3 % (9.3-17.3); White Blood Count 5.8 T/CUMM (4-12)
[2022-07-31 04:30] LABS: Osmolality,Calculated 301.1 MOS/KG (273-304); Potassium 5.7 MMOL/L (3.5-5.1)
[2022-07-31 04:49] LABS: Platelet Estimate Decreased
[2022-07-31] MEDS: AMIODARONE 200 MG TABLET NG SCH ×2 (08:34→20:14)
[2022-07-31] MEDS: COLLAGENASE OINT 30 GM TUBE TOP SCH ×2 (08:34→23:01)
[2022-07-31] MEDS: CHOLECALCIFEROL 5,000 UNIT TABLET PO SCH (08:34)
[2022-07-31] MEDS: FAMOTIDINE 20 MG/2 ML VIAL IV SCH (08:34)
[2022-07-31] MEDS: GABAPENTIN 50 MG/ML 30 ML/BOTTLE PO SCH ×3 (08:34→20:14)
[2022-07-31] MEDS: INSULIN GLARGINE 100 UNIT/ML SUBCUT SCH (08:34)
[2022-07-31] MEDS ORDERED: VANCOMYCIN INJ 1,000 MG in SODIUM CHLORIDE 0.9% 250 ML IV ONE (17:00)
[2022-07-31] MEDS: MORPHINE 2 MG/1 ML SYRINGE IV PRN (23:01)
[2022-08-01] MEDS: INSULIN LISPRO 100 UNIT/ML SUBCUT SCH ×7 (00:16→23:57)
[2022-08-01] MEDS: ALBUTEROL/IPRATROPIUM 3 ML NEB RESP TX SCH ×6 (03:00→23:05)
[2022-08-01 04:23] LABS: Basophils % 0.3 % (0.0-0.8); Eosinophils # 0.1 10*3/uL (0.0-0.87); Hematocrit 25.2 VOL% (42.0-52.0); Hemoglobin 8.2 GM/DL (14.0-18.0); Immature Granulocytes % 0.5 %; Immature Granulocytes Absolute 0.03 #; Lymphocytes # 0.5 10*3/uL (1.4-4.0); Lymphocytes % 7.8 % (21.2-54.2); Mean Corpuscular HGB Conc 32.5 GM/DL (32-36); Mean Corpuscular Volume 97.3 FL (87-102); Mean Platelet Volume 10.9 FL (9.6-12.0); Monocytes # 0.6 10*3/uL (0.11-0.8); Monocytes % 10.2 % (1.7-12.7); Neutrophils % 79.2 % (38.7-73.9); Platelet Count 61 T/CUMM (130-400); Red Blood Count 2.59 MC/CUMM (3.8-5.5); Red Cell Distribution Width 15.1 % (9.3-17.3); White Blood Count 5.9 T/CUMM (4-12)
[2022-08-01 04:48] LABS: Calcium 7.2 MG/DL (8.5-10.1); Osmolality,Calculated 293.7 MOS/KG (273-304); Potassium 3.9 MMOL/L (3.5-5.1)
[2022-08-01 05:02] LABS: Hypochromia 1+; Platelet Estimate Decreased
[2022-08-01 05:10] LABS: Arterial Base Excess iSTAT -2 MMOL/L (-2.5-2.5); Arterial Bicarbonate iSTAT 23.3 MMOL/L (20-26); Arterial O2 Saturation iSTAT 80 % (95-100); Arterial PCO2 iSTAT 41 MM HG (35-48); Arterial PO2 iSTAT 46 MM HG (80-95); Arterial Total CO2 iSTAT 25 MMO/L (23-27); Arterial pH iSTAT 7.362 (7.35-7.45)
[2022-08-01 05:41] LABS: Arterial Base Excess iSTAT -2 MMOL/L (-2.5-2.5); Arterial Bicarbonate iSTAT 23.4 MMOL/L (20-26); Arterial O2 Saturation iSTAT 95 % (95-100); Arterial PCO2 iSTAT 43 MM HG (35-48); Arterial PO2 iSTAT 82 MM HG (80-95); Arterial Total CO2 iSTAT 25 MMO/L (23-27); Arterial pH iSTAT 7.349 (7.35-7.45)
[2022-08-01] MEDS: CHOLECALCIFEROL 5,000 UNIT TABLET PO SCH (09:11)
[2022-08-01] MEDS: AMIODARONE 200 MG TABLET NG SCH ×2 (09:11→20:32)
[2022-08-01] MEDS: FAMOTIDINE 20 MG/2 ML VIAL IV SCH (09:11)
[2022-08-01] MEDS: GABAPENTIN 50 MG/ML 30 ML/BOTTLE PO SCH ×3 (09:14→20:32)
[2022-08-01] MEDS: INSULIN GLARGINE 100 UNIT/ML SUBCUT SCH (09:18)
[2022-08-01] MEDS: MORPHINE 2 MG/1 ML SYRINGE IV PRN ×3 (14:31→23:16)
[2022-08-01] MEDS: COLLAGENASE OINT 30 GM TUBE TOP SCH ×2 (18:26→20:33)
[2022-08-01] MEDS ORDERED: HALOPERIDOL 5 MG/ML AMP IM ONE (22:26)
[2022-08-01] MEDS ORDERED: LORazepam 2 MG/1 ML VIAL IV ONE (23:45)
[2022-08-01] MEDS ORDERED: LORazepam 2 MG/1 ML VIAL ONE (23:49)
[2022-08-02] MEDS: ALBUTEROL/IPRATROPIUM 3 ML NEB RESP TX SCH ×6 (03:10→23:07)
[2022-08-02] MEDS: INSULIN LISPRO 100 UNIT/ML SUBCUT SCH ×2 (03:40→07:55)
[2022-08-02] MEDS: MORPHINE 2 MG/1 ML SYRINGE IV PRN ×2 (03:41→15:39)
[2022-08-02 03:48] LABS: Basophils % 0.4 % (0.0-0.8); Eosinophils # 0.2 10*3/uL (0.0-0.87); Eosinophils % 2.1 % (0.00-10.9); Hemoglobin 8.8 GM/DL (14.0-18.0); Immature Granulocytes % 0.7 %; Immature Granulocytes Absolute 0.05 #; Lymphocytes # 0.8 10*3/uL (1.4-4.0); Lymphocytes % 11.5 % (21.2-54.2); Mean Corpuscular HGB Conc 32.6 GM/DL (32-36); Mean Corpuscular Volume 98.5 FL (87-102); Mean Platelet Volume 11.3 FL (9.6-12.0); Monocytes # 0.6 10*3/uL (0.11-0.8); Neutrophils % 76.3 % (38.7-73.9); Platelet Count 64 T/CUMM (130-400); Red Blood Count 2.74 MC/CUMM (3.8-5.5); Red Cell Distribution Width 15.4 % (9.3-17.3); White Blood Count 7.1 T/CUMM (4-12)
[2022-08-02 04:19] LABS: Calcium 7.3 MG/DL (8.5-10.1); Osmolality,Calculated 295.8 MOS/KG (273-304); Potassium 3.8 MMOL/L (3.5-5.1)
[2022-08-02 04:31] LABS: Arterial Base Excess iSTAT -5 MMOL/L (-2.5-2.5); Arterial Bicarbonate iSTAT 21.2 MMOL/L (20-26); Arterial O2 Saturation iSTAT 96 % (95-100); Arterial PCO2 iSTAT 41 MM HG (35-48); Arterial PO2 iSTAT 90 MM HG (80-95); Arterial Total CO2 iSTAT 22 MMO/L (23-27)
[2022-08-02] MEDS: AMIODARONE 200 MG TABLET NG SCH ×2 (08:19→21:04)
[2022-08-02] MEDS: FAMOTIDINE 20 MG/2 ML VIAL IV SCH (08:20)
[2022-08-02] MEDS: CHOLECALCIFEROL 5,000 UNIT TABLET PO SCH (08:20)
[2022-08-02] MEDS: GABAPENTIN 50 MG/ML 30 ML/BOTTLE PO SCH ×3 (08:20→21:05)
[2022-08-02] MEDS: fentaNYL 100 MCG/HR PATCH TRANSDERM SCH (08:22)
[2022-08-02] MEDS ORDERED: INSULIN LISPRO 100 UNIT/ML SUBCUT PRN (08:51)
[2022-08-02] MEDS: INSULIN GLARGINE 100 UNIT/ML SUBCUT SCH (10:34)
[2022-08-02] MEDS ORDERED: fentaNYL 50 MCG/HR PATCH TRANSDERM SCH (11:02)
[2022-08-02] MEDS ORDERED: OLANZapine 5 MG TABLET PO ONE (15:07)
[2022-08-02] MEDS: COLLAGENASE OINT 30 GM TUBE TOP SCH ×2 (15:43→21:04)
[2022-08-03 05:40] LABS: Basophils % 0.4 % (0.0-0.8); Eosinophils # 0.2 10*3/uL (0.0-0.87); Eosinophils % 2.4 % (0.00-10.9); Hematocrit 25.1 VOL% (42.0-52.0); Hemoglobin 8.1 GM/DL (14.0-18.0); Immature Granulocytes % 0.6 %; Immature Granulocytes Absolute 0.05 #; Lymphocytes # 1.1 10*3/uL (1.4-4.0); Lymphocytes % 12.9 % (21.2-54.2); Mean Corpuscular HGB Conc 32.3 GM/DL (32-36); Mean Corpuscular Volume 98.4 FL (87-102); Mean Platelet Volume 11.2 FL (9.6-12.0); Monocytes # 0.7 10*3/uL (0.11-0.8); Monocytes % 8.4 % (1.7-12.7); Neutrophils % 75.3 % (38.7-73.9); Platelet Count 70 T/CUMM (130-400); Red Blood Count 2.55 MC/CUMM (3.8-5.5); Red Cell Distribution Width 15.3 % (9.3-17.3); White Blood Count 8.2 T/CUMM (4-12)
[2022-08-03] MEDS ORDERED: NALOXONE 0.4 MG/ML VIAL ONE (06:21)
[2022-08-03] MEDS ORDERED: NALOXONE 0.4 MG/ML VIAL IV ONE (06:22)
[2022-08-03 06:25] LABS: Hypochromia Slight; Microcytosis Slight; Platelet Estimate Decreased
[2022-08-03] MEDS ORDERED: ALBUTEROL/IPRATROPIUM 3 ML NEB RESP TX ONE (06:38)
[2022-08-03] MEDS ORDERED: methylPREDNISolone SOD SUC 40 MG/1 ML VIAL IV ONE (06:39)
[2022-08-03 06:56] LABS: Calcium 6.9 MG/DL (8.5-10.1); Osmolality,Calculated 288.4 MOS/KG (273-304); Potassium 3.9 MMOL/L (3.5-5.1)
[2022-08-03] MEDS: ALBUTEROL/IPRATROPIUM 3 ML NEB RESP TX SCH ×6 (07:00→23:01)
[2022-08-03 07:46] LABS: Calcium 6.9 MG/DL (8.5-10.1); Osmolality,Calculated 290.1 MOS/KG (273-304); Potassium 3.8 MMOL/L (3.5-5.1)
[2022-08-03 08:04] LABS: ABG Base Excess -5.6 MMOL/L (-2.5-2.5); ABG HCO3 19.4 MMOL/L (20-26); ABG Oxygen Saturation 70.8 % (95-100); ABG PH 7.289 (7.35-7.45); ABG PO2 48.3 MM HG (80-95); ABG TCO2 19.6 MMOL/L (23-27)
[2022-08-03] MEDS: GABAPENTIN 50 MG/ML 30 ML/BOTTLE PO SCH ×3 (09:00→20:56)
[2022-08-03] MEDS: AMIODARONE 200 MG TABLET NG SCH ×2 (13:41→20:57)
[2022-08-03] MEDS: FAMOTIDINE 20 MG/2 ML VIAL IV SCH (13:41)
[2022-08-03] MEDS: CHOLECALCIFEROL 5,000 UNIT TABLET PO SCH (13:42)
[2022-08-03] MEDS: COLLAGENASE OINT 30 GM TUBE TOP SCH ×2 (13:46→21:00)
[2022-08-03] MEDS: INSULIN GLARGINE 100 UNIT/ML SUBCUT SCH (13:47)
[2022-08-03] MEDS ORDERED: VANCOMYCIN INJ 1,000 MG in SODIUM CHLORIDE 0.9% 250 ML IV ONE (17:00)
[2022-08-04] MEDS: ALBUTEROL/IPRATROPIUM 3 ML NEB RESP TX SCH ×3 (03:01→10:45)
[2022-08-04 03:34] LABS: Arterial Base Excess iSTAT -2 MMOL/L (-2.5-2.5); Arterial Bicarbonate iSTAT 23.8 MMOL/L (20-26); Arterial O2 Saturation iSTAT 96 % (95-100); Arterial PCO2 iSTAT 42 MM HG (35-48); Arterial PO2 iSTAT 82 MM HG (80-95); Arterial Total CO2 iSTAT 25 MMO/L (23-27); Arterial pH iSTAT 7.362 (7.35-7.45)
[2022-08-04 05:49] LABS: Basophils % 0.3 % (0.0-0.8); Hematocrit 23.8 VOL% (42.0-52.0); Hemoglobin 7.7 GM/DL (14.0-18.0); Immature Granulocytes % 0.9 %; Immature Granulocytes Absolute 0.07 #; Lymphocytes # 0.9 10*3/uL (1.4-4.0); Lymphocytes % 11.3 % (21.2-54.2); Mean Corpuscular HGB Conc 32.4 GM/DL (32-36); Mean Corpuscular Volume 99.6 FL (87-102); Mean Platelet Volume 10.4 FL (9.6-12.0); Monocytes # 0.6 10*3/uL (0.11-0.8); Neutrophils % 79.5 % (38.7-73.9); Platelet Count 62 T/CUMM (130-400); Red Blood Count 2.39 MC/CUMM (3.8-5.5); Red Cell Distribution Width 15.8 % (9.3-17.3)
[2022-08-04 06:14] LABS: Albumin 2.2 G/DL (3.4-5.0); Bilirubin,Total 0.6 MG/DL (0.20-1.00); Calcium 7.5 MG/DL (8.5-10.1); Potassium 3.7 MMOL/L (3.5-5.1); Total Protein 7.1 G/DL (6.4-8.2)
[2022-08-04] MEDS: INSULIN GLARGINE 100 UNIT/ML SUBCUT SCH (08:59)
[2022-08-04] MEDS: FAMOTIDINE 20 MG/2 ML VIAL IV SCH (09:03)
[2022-08-04] MEDS: GABAPENTIN 50 MG/ML 30 ML/BOTTLE PO SCH (09:04)
[2022-08-04] MEDS: CHOLECALCIFEROL 5,000 UNIT TABLET PO SCH (09:04)
[2022-08-04] MEDS: AMIODARONE 200 MG TABLET NG SCH (09:04)
[2022-08-04] MEDS: COLLAGENASE OINT 30 GM TUBE TOP SCH (09:12)
[2022-08-04] MEDS ORDERED: INSULIN LISPRO 100 UNIT/ML SUBCUT SCH (11:30)
[2022-08-04 12:24] VITALS: BP 164/73
== END 2022-08-04 13:56 | DRG 853 ==
LOC: N.ED 15:53 → SUATTDRO 17:48 → N.EDINP 17:48 → N.CC 19:39 → N.5E 08-03 02:52
PROVIDERS: ADMIT Internal Medicine; ATTEND Internal Medicine